=== PATIENT | male | born 1990 ===

== ENCOUNTER 2021-09-17 13:26 | Outpatient (CLI) | payer MEDICARE, MEDICAID, SELFPAY | END 2021-09-17 13:27 | disposition home or self-care (01) | LOC: ANHBWCAUD 13:28 | PROVIDERS: Visit Provider Family Medicine | DX: H91.93 Unspecified hearing loss, bilateral (principal) | CPT/HCPCS: 92557; 92567 ==

== ENCOUNTER 2024-09-28 09:04 | Outpatient (CLI) | payer MEDICARE, MEDICAID, SELFPAY ==
--- OUTSIDE RECORDS SUMMARY | 2024-09-28 09:46 | XMS_ITS | Encounter Summary ---
Author Organization [facility] Address [address] [place] [address] Phone Care Team Providers Care Pathology Collector Name Role Phone Gagan Mcginnis MD Primary Care Provider [phone] Gagan Mcginnis MD Unavailable [phone] Encounter Details Date Type Department Care Team (Late st Contact Info) Description 01/01/2022 Lab Requisition [facility] Laboratory Services 1 [place] [id number] Gagan Mcginnis MD [address] [place] [address] [address] Encounter for screening for COVID-19 Social History Tobacco Use Types Packs/Day Years Used Date Smoking Tobacco: Never Smokeless Tobacco: Never Alcohol Use Standard Drinks/Week Comments No 0 (1 standard drink = 0.6 oz pur e alcohol) Sex and Gender Information Value Date Recorded Sex Assigned at Not on file Legal Sex Male 11:01 PM CDT Gender Identity Not on file Sexual Orientation Not on file documented as of this encounter Plan of Treatment Not on file documented as of this encounter Procedures Procedure Name Priority Date/Time Associated Diagnosis Comments SARS-COV-2 BY MOLECULAR Routine 01/01/2022 7:14 AM CDT Encounter for screening for COVID-19 documented in this encounter Results * SARS-COV-2 BY MOLECULAR (01/01/2022 7:14 AM CDT) SARSCOV2 NOT DETECTED (Referen ce Range for this test is Not Detected ) [facility] THERMOFISHER FAST DX 01/02/2022 1:55 PM CDT [facility] Comment:This test was perfor med by a RT-PCR method. Other No Phlebotomy Charged / Unknown 01/01/2022 7:14 AM CDT 01/01/2022 12:40 PM CDT Narrative [facility] - 01/02/2022 1:55 PM CDT Authorized Fact Sheets about this test for providers and patients are available at: https://www.fda.gov/medical-devices/aclnrmdlg-nbkcdrtjbv-boqwrzz-devices/emergen -us e-authorizations us Gagan Mcginnis MD MICROBIOLOGY - GENERAL ORDERAB LES Final Result [facility] [address] [place] [address], documented in this encounter Visit Diagnoses Diagnosis Encounter for screening for COVID-19 documented in this encounter Additional Health Concerns Infection Onset Date Last Indicated Resolved Time COVID - 19 11/13/2021 06/11/2022 06/21/2022 12:1 6 AM LOADER SEMICONDUCTOR DIES COVID - 19 07/30/2022 10/15/2022 10/25/2022 12:1 6 AM CDT Respiratory Rule-Out 09/06/2024 09/06/2024 025 12:16 AM LOADER SEMICONDUCTOR DIES documented as of this encounter Care Teams Pathology Collector Relationship Specialty Start Date End Date Gagan Mcginnis MD [address] [place] [address] [address] [place] [address] PCP - General Family Medicine 06/12/21 Gagan Mcginnis MD [address] [place] [address] [place] [address] Family Medicine 06/12/21 documented as of this encounter
--- OUTSIDE RECORDS SUMMARY | 2024-09-28 09:46 | XMS_ITS | Encounter Summary ---
Author Organization [facility] Address [address] [place] [address] Phone Care Team Providers Care Care Manager Name Role Phone Gagan Mcginnis MD Primary Care Provider [phone] Gagan Mcginnis MD Unavailable [phone] Encounter Details Date Type Department Care Team (Late st Contact Info) Description 03/05/2022 Lab Requisition [facility] Laboratory Services 1 [place] [phone] Gagan Mcginnis MD [address] [place] [address] [address] Encounter for screening for COVID-19 Social History [...] Associated Diagnosis Comments SARS-COV-2 BY MOLECULAR Routine 03/05/2022 7:03 AM CDT documented in this encounter Results * SARS-COV-2 BY MOLECULAR (03/05/2022 7:03 AM CDT) SARSCOV2 NOT DETECTED (Referen ce Range for this test is Not Detected ) [facility] THERMOFISHER FAST DX 03/06/2022 1:01 PM CDT [facility] Comment:This test was perfor med by a RT-PCR method. Other Non-Phlebotomy Collection / Unknown 03/05/2022 7:03 AM CDT 03/05/2022 1:30 PM CDT Narrative [facility] - 03/06/2022 1:01 PM CDT Authorized Fact Sheets about this test for providers and patients are available at: https://www.fda.gov/medical-devices/ijvxatsqm-nfybhhfimz-pjvbxzt-devices/emergen -us e-authorizations us Gagan Mcginnis MD MICROBIOLOGY - GENERAL ORDERAB LES Final Result [facility] [address] [place] [address], documented in this encounter Visit Diagnoses Diagnosis Encounter for screening for COVID-19 documented in this encounter Additional Health Concerns Infection Onset Date Last Indicated Resolved Time COVID - 19 11/13/2021 06/11/2022 06/21/2022 12:1 6 AM MEDICAL ADVISOR COVID - 19 07/30/2022 10/15/2022 10/25/2022 12:1 6 AM CDT Respiratory Rule-Out 09/06/2024 09/06/2024 025 12:16 AM MEDICAL ADVISOR documented as of this encounter Care Teams Care Manager Relationship Specialty Start Date End Date Gagan Mcginnis MD [address] [place] [address] [place] [address] PCP - General Family Medicine 06/12/21 Gagan Mcginnis MD [address] [place] [address] [place] [address] Family Medicine 06/12/21 documented as of this encounter
--- OUTSIDE RECORDS SUMMARY | 2024-09-28 09:46 | XMS_ITS | Encounter Summary ---
Author Organization [facility] Address [address] [place] [address] Phone Care Team Providers Care Rivet Flunky Name Role Phone Gagan Mcginnis MD Primary Care Provider [phone] Gagan Mcginnis MD Unavailable Encounter Details Date Type Department Care Team (Late st Contact Info) Description 04/09/2022 Lab Requisition [facility] Laboratory Services 1 [place] [phone] Gagan Mcginnis MD [address] [place] [address] [address] Encounter for screening for COVID-19 Social History [...] Associated Diagnosis Comments SARS-COV-2 BY MOLECULAR Routine 04/09/2022 7:22 AM CDT Encounter for screening for COVID-19 documented in this encounter Results * SARS-COV-2 BY MOLECULAR (04/09/2022 7:22 AM CDT) SARSCOV2 NOT DETECTED (Referen ce Range for this test is Not Detected ) [facility] THERMOFISHER FAST DX 04/10/2022 8:21 AM CDT [facility] Comment:This test was perfor med by a RT-PCR method. Other COVID 19 Home Health/ Alf Facility Collection / Unknown 04/09/2022 7:22 AM CDT 04/09/2022 1:21 PM CDT Narrative [facility] - 04/10/2022 8:21 AM CDT Authorized Fact Sheets about this test for providers and patients are available at: https://www.fda.gov/medical-devices/klmihkhrp-qyhgdzpuzl-icmsalj-devices/emergen -us e-authorizations us aGgan Mcginnis MD MICROBIOLOGY - GENERAL ORDERAB LES Final Result [facility] [address] [place] [address], documented in this encounter Visit Diagnoses Diagnosis Encounter for screening for COVID-19 documented in this encounter Additional Health Concerns Infection Onset Date Last Indicated Resolved Time COVID - 19 11/13/2021 06/11/2022 06/21/2022 12:1 6 AM CORN HUSKER MACHINE OPERATOR COVID - 19 07/30/2022 10/15/2022 10/25/2022 12:1 6 AM CDT Respiratory Rule-Out 09/06/2024 09/06/2024 025 12:16 AM CORN HUSKER MACHINE OPERATOR documented as of this encounter Care Teams Rivet Flunky Relationship Specialty Start Date End Date Gagan Mcginnis MD [address] [facility] [address] [place] [address] PCP - General Family Medicine 06/12/21 Gagan Mcginnis MD [address] [facility] [address] [place] [address] Family Medicine 06/12/21 documented as of this encounter
--- OUTSIDE RECORDS SUMMARY | 2024-09-28 09:46 | XMS_ITS | Encounter Summary ---
Author Organization [facility] Address [address] [place] [address] Phone Care Team Providers Care Household Coordinator Name Role Phone Gagan Mcginnis MD Primary Care Provider [phone] Gagan Mcginnis MD Unavailable [phone] Encounter Details Date Type Department Care Team (Late st Contact Info) Description 06/19/2021 Lab Requisition [facility] Laboratory Services 1 [place] [phone] Gagan Mcginnis MD [address] [place] [address] [address] Encounter for screening for COVID-19 Social History [...] on file Sexual Orientation Not on file COVID-19 Exposure Response Date Recorded In the last month, have you been in contact with someone who was confirmed or suspected to have Coronavirus / COVID-19? No / Unsure 05/27/2021 11:57 AM CDT documented as of this encounter Plan of Treatment Not on file documented as of this encounter Procedures Procedure Name Priority Date/Time Associated Diagnosis Comments SARS-COV-2 BY MOLECULAR Routine 06/19/2021 7:33 AM AD TAKER Encounter for screening for COVID-19 documented in this encounter Results * SARS-COV-2 BY MOLECULAR (06/19/2021 7:33 AM AD TAKER) SARSCOV2 NOT DETECTED (Referen ce Range for this test is Not Detected ) [facility] THERMOFISHER FAST DX 06/20/2021 8:54 AM AD TAKER [facility] Comment:This test was perfor med by a RT-PCR method. Other Non-Phlebotomy Collection / Unknown 06/19/2021 7:33 AM AD TAKER 06/19/2021 10:35 AM AD TAKER Narrative [facility] - 06/20/2021 8:54 AM AD TAKER Authorized Fact Sheets about this test for providers and patients are available at: https://www.fda.gov/medical-devices/zblefgyql-uhhiunzplf-amajxca-devices/emergen -us e-authorizations us Gagan Mcginnis MD MICROBIOLOGY - GENERAL ORDERAB LES Final Result [facility] [address] [place] [address], documented in this encounter Visit Diagnoses Diagnosis Encounter for screening for COVID-19 documented in this encounter Additional Health Concerns Infection Onset Date Last Indicated Resolved Time COVID - 19 04/24/2021 08/14/2021 08/16/2021 6:12 AM AD TAKER COVID - 19 06/12/2021 07/10/2021 07/16/2021 12:1 8 AM AD TAKER COVID - 19 07/17/2021 07/31/2021 08/06/2021 12:1 6 AM AD TAKER COVID - 19 Confirmed 08/14/2021 08/14/2021 022 12:17 AM AD TAKER COVID - 19 09/11/2021 09/11/2021 10/01/2021 12:1 6 AM AD TAKER COVID - 19 11/13/2021 06/11/2022 06/21/2022 12:1 6 AM AD TAKER COVID - 19 07/30/2022 10/15/2022 10/25/2022 12:1 6 AM CDT Respiratory Rule-Out 09/06/2024 09/06/2024 025 12:16 AM AD TAKER documented as of this encounter Care Teams Household Coordinator Relationship Specialty Start Date End Date Gagan Mcginnis MD [address] [facility] [address] [place] [address] PCP - General Family Medicine 06/12/21 Gagan Mcginnis MD [address] [facility] [address] [place] [address] Family Medicine 06/12/21 documented as of this encounter
--- OUTSIDE RECORDS SUMMARY | 2024-09-28 09:46 | XMS_ITS | Encounter Summary ---
Author Organization [facility] Address [address] [place] [address] Phone Care Team Providers Care Access Services Librarian Name Role Phone Gagan Mcginnis MD Primary Care Provider [phone] Gagan Mcginnis MD Unavailable [phone] Encounter Details Date Type Department Care Team (Late st Contact Info) Description 06/26/2021 Lab Requisition [facility] Laboratory Services 1 [place] [phone] Gagan Mcginnis MD [address] [place] [address] [address] Encounter for screening for COVID-19 Social History Tobacco Use Types Packs/Day Years Used Date Smoking Tobacco: Never Assessed Sex and Gender Information Value Date Recorded [...] Associated Diagnosis Comments SARS-COV-2 BY MOLECULAR Routine 06/26/2021 7:23 AM INSPECTOR INTEGRATED CIRCUITS Encounter for screening for COVID-19 documented in this encounter Results * SARS-COV-2 BY MOLECULAR (06/26/2021 7:23 AM INSPECTOR INTEGRATED CIRCUITS) SARSCOV2 NOT DETECTED (Referen ce Range for this test is Not Detected ) [facility] THERMOFISHER FAST DX 06/27/2021 9:23 AM INSPECTOR INTEGRATED CIRCUITS [facility] Comment:This test was perfor med by a RT-PCR method. Other No Phlebotomy Charged / Unknown 06/26/2021 7:23 AM INSPECTOR INTEGRATED CIRCUITS 06/26/2021 10:26 AM INSPECTOR INTEGRATED CIRCUITS Narrative [facility] - 06/27/2021 9:23 AM INSPECTOR INTEGRATED CIRCUITS Authorized Fact Sheets about this test for providers and patients are available at: https://www.fda.gov/medical-devices/mllrxotbp-ukesedzvws-xmnonam-devices/emergen cy-us e-authorizations us Gagan Mcginnis MD MICROBIOLOGY - GENERAL ORDERAB LES Final Result [facility] [address] [place] [address], documented in this encounter Visit Diagnoses Diagnosis Encounter for screening for COVID-19 documented in this encounter Additional Health Concerns Infection Onset Date Last Indicated Resolved Time COVID - 19 04/24/2021 08/14/2021 08/16/2021 6:12 AM INSPECTOR INTEGRATED CIRCUITS COVID - 19 06/12/2021 07/10/2021 07/16/2021 12:1 8 AM INSPECTOR INTEGRATED CIRCUITS COVID - 19 07/17/2021 07/31/2021 08/06/2021 12:1 6 AM INSPECTOR INTEGRATED CIRCUITS COVID - 19 Confirmed 08/14/2021 08/14/2021 022 12:17 AM INSPECTOR INTEGRATED CIRCUITS COVID - 19 09/11/2021 09/11/2021 10/01/2021 12:1 6 AM INSPECTOR INTEGRATED CIRCUITS COVID - 19 11/13/2021 06/11/2022 06/21/2022 12:1 6 AM INSPECTOR INTEGRATED CIRCUITS COVID - 19 07/30/2022 10/15/2022 10/25/2022 12:1 6 AM CDT Respiratory Rule-Out 09/06/2024 09/06/2024 025 12:16 AM INSPECTOR INTEGRATED CIRCUITS documented as of this encounter Care Teams Access Services Librarian Relationship Specialty Start Date End Date Gagan Mcginnis MD [address] [place] [address] [address] [place] [address] PCP - General Family Medicine 06/12/21 Gagan Mcginnis MD [address] [facility] [place] [address] Family Medicine 06/12/21 documented as of this encounter
--- OUTSIDE RECORDS SUMMARY | 2024-09-28 09:46 | XMS_ITS | Encounter Summary ---
Author Organization [facility] Address [address] [place] [address] Phone Care Team Providers Care Corporate Legal Assistant Name Role Phone Gagan Mcginnis MD Primary Care Provider [phone] Gagan Mcginnis MD Unavailable [phone] Encounter Details Date Type Department Care Team (Late st Contact Info) Description 03/19/2022 Lab Requisition [facility] Laboratory Services 1 [place] [phone] Gagan Mcginnis MD [address] [place] [address] [address] Encounter for screening for COVID-19 Social History [...] Associated Diagnosis Comments SARS-COV-2 BY MOLECULAR Routine 03/19/2022 7:20 AM CDT documented in this encounter Results * SARS-COV-2 BY MOLECULAR (03/19/2022 7:20 AM CDT) SARSCOV2 NOT DETECTED (Referen ce Range for this test is Not Detected ) [facility] THERMOFISHER FAST DX 03/20/2022 5:38 PM CDT [facility] Comment:This test was perfor med by a RT-PCR method. Other Non-Phlebotomy Collection / Unknown 03/19/2022 7:20 AM CDT 03/19/2022 1:17 PM CDT Narrative [facility] - 03/20/2022 5:38 PM CDT Authorized Fact Sheets about this test for providers and patients are available at: https://www.fda.gov/medical-devices/ilbfrmzua-gqvmedyazc-mckseha-devices/emergen -us e-authorizations us Gagan Mcginnis MD MICROBIOLOGY - GENERAL ORDERAB LES Final Result [facility] [address] [place] [address], documented in this encounter Visit Diagnoses Diagnosis Encounter for screening for COVID-19 documented in this encounter Additional Health Concerns Infection Onset Date Last Indicated Resolved Time COVID - 19 11/13/2021 06/11/2022 06/21/2022 12:1 6 AM FIXER SUPERVISOR COVID - 19 07/30/2022 10/15/2022 10/25/2022 12:1 6 AM CDT Respiratory Rule-Out 09/06/2024 09/06/2024 025 12:16 AM FIXER SUPERVISOR documented as of this encounter Care Teams Corporate Legal Assistant Relationship Specialty Start Date End Date Gagan Mcginnis MD [address] [place] [address] [place] [address] PCP - General Family Medicine 06/12/21 Gagan Mcginnis MD [address] [place] [address] [place] [address] Family Medicine 06/12/21 documented as of this encounter
--- OUTSIDE RECORDS SUMMARY | 2024-09-28 09:46 | XMS_ITS | Encounter Summary ---
Author Organization [facility] Address [address] [place] [address] Phone Care Team Providers Care Heavy Rail Train Operator Name Role Phone Gagan Mcginnis MD Primary Care Provider [phone] Gagan Mcginnis MD Primary Care Provider [phone] Gagan Mcginnis MD Unavailable Encounter Details Date Type Department Care Team (Late st Contact Info) Description 05/29/2021 Lab Requisition [facility] Laboratory Services 1 [place] [address] Gagan Mcginnis MD [address] [place] [address] [facility] [address] [place] [address] Encounter for screening for other bacterial diseases Social History Tobacco Use Types Packs/Day Years [...] Associated Diagnosis Comments SARS-COV-2 BY MOLECULAR Routine 05/29/2021 7:20 AM CDT Encounter for screening for other bacterial diseases documented in this encounter Results * SARS-COV-2 BY MOLECULAR (05/29/2021 7:20 AM CDT) SARSCOV2 NOT DETECTED (Referen ce Range for this test is Not Detected ) [facility] THERMOFISHER FAST DX 05/30/2021 7:12 AM CDT [facility] Comment:This test was perfor med by a RT-PCR method. Other COVID 19 Collection / Unknown 05/29/2021 7:20 AM CDT 05/29/2021 11:48 AM CDT Narrative [facility] - 05/30/2021 7:12 AM CDT Authorized Fact Sheets about this test for providers and patients are available at: https://www.fda.gov/medical-devices/msgetyhma-egvshwkrvo-kzilede-devices/emergen -us e-authorizations us Gagan Mcginnis MD MICROBIOLOGY - GENERAL ORDERAB LES Final Result Performing Organization Address City/State/[facility] Co de Phone Number [facility] [address] [place] [address], documented in this encounter Visit Diagnoses Diagnosis Encounter for screening for other bacterial diseases documented in this encounter Additional Health Concerns Infection Onset Date Last Indicated Resolved Time COVID - 19 04/24/2021 08/14/2021 08/16/2021 6:12 AM AUTOMOBILE LIGHTS ASSEMBLER COVID - 19 06/12/2021 07/10/2021 07/16/2021 12:1 8 AM AUTOMOBILE LIGHTS ASSEMBLER COVID - 19 07/17/2021 07/31/2021 08/06/2021 12:1 6 AM AUTOMOBILE LIGHTS ASSEMBLER COVID - 19 Confirmed 08/14/2021 08/14/2021 022 12:17 AM AUTOMOBILE LIGHTS ASSEMBLER COVID - 19 09/11/2021 09/11/2021 10/01/2021 12:1 6 AM AUTOMOBILE LIGHTS ASSEMBLER COVID - 19 11/13/2021 06/11/2022 06/21/2022 12:1 6 AM AUTOMOBILE LIGHTS ASSEMBLER COVID - 19 07/30/2022 10/15/2022 10/25/2022 12:1 6 AM CDT Respiratory Rule-Out 09/06/2024 09/06/2024 02/25/2 025 12:16 AM AUTOMOBILE LIGHTS ASSEMBLER documented as of this encounter Care Teams Heavy Rail Train Operator Relationship Specialty Start Date End Date Gagan Mcginnis MD [address] [place] [address] PCP - General Family Medicine 08/21/20 06/11/21 Gagan Mcginnis MD [address] [place] [address] PCP - General Family Medicine 06/12/21 Gagan Mcginnis MD [address] [place] [address] Family Medicine 06/12/21 documented as of this encounter
--- OUTSIDE RECORDS SUMMARY | 2024-09-28 09:46 | XMS_ITS | Encounter Summary ---
Author Organization [facility] Address [address] [place] [address] Phone Care Team Providers Care [employer] Name Role Phone Gagan Mcginnis MD Primary Care Provider [phone] Gagan Mcginnis MD Unavailable [phone] Reason for Visit * Reason Comments Seizure Encounter Details Date Type Department Care Team (Late st Contact Info) Description 04/14/2022 Nursing Facility [facility] [address] [place] [address] Uri Sapp MD [address] [place] [phone] Social History Tobacco Use Types Packs/Day Years [...] on file documented as of this encounter Visit Diagnoses Not on filedocumented in this encounter Additional Health Concerns Infection Onset Date Last Indicated Resolved Time COVID - 19 11/13/2021 06/11/2022 06/21/2022 12:1 6 AM GLOBAL CATEGORY MANAGER COVID - 19 07/30/2022 10/15/2022 10/25/2022 12:1 6 AM CDT Respiratory Rule-Out 09/06/2024 09/06/2024 025 12:16 AM GLOBAL CATEGORY MANAGER documented as of this encounter Care Teams [employer] Relationship Specialty Start Date End Date Gagan Mcginnis MD [address] [facility] [address] [place] [address] PCP - General Family Medicine 06/12/21 Gagan Mcginnis MD [address] [facility] [address] [place] [address] Family Medicine 06/12/21 documented as of this encounter
--- OUTSIDE RECORDS SUMMARY | 2024-09-28 09:46 | XMS_ITS | Encounter Summary ---
Author Organization [facility] Address [address] [place] [address] Phone Care Team Providers Care Systems Manager Name Role Phone Gagan Mcginnis MD Primary Care Provider [phone] Gagan Mcginnis MD Unavailable [phone] Encounter Details Date Type Department Care Team (Late st Contact Info) Description 04/02/2022 Lab Requisition [facility] Laboratory Services 1 [place] [phone] Gagan Mcginnis MD [address] [place] [address] [address] Encounter for screening for COVID-19 Social History [...] Associated Diagnosis Comments SARS-COV-2 BY MOLECULAR Routine 04/02/2022 7:24 AM CDT Encounter for screening for COVID-19 documented in this encounter Results * SARS-COV-2 BY MOLECULAR (04/02/2022 7:24 AM CDT) SARSCOV2 NOT DETECTED (Referen ce Range for this test is Not Detected ) [facility] THERMOFISHER FAST DX 04/03/2022 6:15 AM CDT [facility] Comment:This test was perfor med by a RT-PCR method. Other Non-Phlebotomy Collection / Unknown 04/02/2022 7:24 AM CDT 04/02/2022 12:48 PM CDT Narrative [facility] - 04/03/2022 6:15 AM CDT Authorized Fact Sheets about this test for providers and patients are available at: https://www.fda.gov/medical-devices/qlosunpcq-qyqglddlav-ncvasem-devices/emergen -us e-authorizations us Gagan Mcginnis MD MICROBIOLOGY - GENERAL ORDERAB LES Final Result [facility] [address] [place] [address], documented in this encounter Visit Diagnoses Diagnosis Encounter for screening for COVID-19 documented in this encounter Additional Health Concerns Infection Onset Date Last Indicated Resolved Time COVID - 19 11/13/2021 06/11/2022 06/21/2022 12:1 6 AM COOKING TEACHER COVID - 19 07/30/2022 10/15/2022 10/25/2022 12:1 6 AM CDT Respiratory Rule-Out 09/06/2024 09/06/2024 025 12:16 AM COOKING TEACHER documented as of this encounter Care Teams Systems Manager Relationship Specialty Start Date End Date Gagan Mcginnis MD [address] [place] [address] [address] [place] [address] PCP - General Family Medicine 06/12/21 Gagan Mcginnis MD [address] [facility] [address] [place] [address] Family Medicine 06/12/21 documented as of this encounter
--- OUTSIDE RECORDS SUMMARY | 2024-09-28 09:46 | XMS_ITS | Encounter Summary ---
Author Organization [facility] Address [address] [place] [address] Phone Care Team Providers Care Vice President Of Academic Affairs Name Role Phone Gagan Mcginnis MD Primary Care Provider [phone] Gagan Mcginnis MD Unavailable [phone] Encounter Details Date Type Department Care Team (Late st Contact Info) Description 01/08/2022 Lab Requisition [facility] Laboratory Services 1 [place] [phone] Gagan Mcginnis MD [address] [place] [address] [address] Encounter for screening for COVID-19 Social History [...] Associated Diagnosis Comments SARS-COV-2 BY MOLECULAR Routine 01/08/2022 7:28 AM CDT Encounter for screening for COVID-19 documented in this encounter Results * SARS-COV-2 BY MOLECULAR (01/08/2022 7:28 AM CDT) SARSCOV2 NOT DETECTED (Referen ce Range for this test is Not Detected ) [facility] THERMOFISHER FAST DX 01/09/2022 9:54 AM CDT [facility] Comment:This test was perfor med by a RT-PCR method. Other Non-Phlebotomy Collection / Unknown 01/08/2022 7:28 AM CDT 01/08/2022 11:27 AM CDT Narrative [facility] - 01/09/2022 9:54 AM CDT Authorized Fact Sheets about this test for providers and patients are available at: https://www.fda.gov/medical-devices/auhkzxiuu-eyxgkevsij-qwdcjed-devices/emergen -us e-authorizations us Gagan Mcginnis MD MICROBIOLOGY - GENERAL ORDERAB LES Final Result [facility] [address] [place] [address], documented in this encounter Visit Diagnoses Diagnosis Encounter for screening for COVID-19 documented in this encounter Additional Health Concerns Infection Onset Date Last Indicated Resolved Time COVID - 19 11/13/2021 06/11/2022 06/21/2022 12:1 6 AM BUSINESS OFFICE TECHNOLOGY INSTRUCTOR COVID - 19 07/30/2022 10/15/2022 10/25/2022 12:1 6 AM CDT Respiratory Rule-Out 09/06/2024 09/06/2024 025 12:16 AM BUSINESS OFFICE TECHNOLOGY INSTRUCTOR documented as of this encounter Care Teams Vice President Of Academic Affairs Relationship Specialty Start Date End Date Gagan Mcginnis MD [address] [place] [address] [address] [place] [address] PCP - General Family Medicine 06/12/21 Gagan Mcginnis MD [address] [facility] [address] [place] [address] Family Medicine 06/12/21 documented as of this encounter
--- OUTSIDE RECORDS SUMMARY | 2024-09-28 09:46 | XMS_ITS | Encounter Summary ---
Author Organization [facility] Address [address] [place] [address] Phone Care Team Providers Care Police Service Technician Name Role Phone Gagan Mcginnis MD Primary Care Provider [phone] Gagan Mcginnis MD Unavailable [phone] Encounter Details Date Type Department Care Team (Late st Contact Info) Description 04/23/2022 Lab Requisition [facility] Laboratory Services 1 [place] [phone] Gagan Mcginnis MD [address] [place] [address] [address] Encounter for screening for COVID-19 Social History [...] Associated Diagnosis Comments SARS-COV-2 BY MOLECULAR Routine 04/23/2022 7:16 AM CDT Encounter for screening for COVID-19 documented in this encounter Results * SARS-COV-2 BY MOLECULAR (04/23/2022 7:16 AM CDT) SARSCOV2 NOT DETECTED (Referen ce Range for this test is Not Detected ) [facility] THERMOFISHER FAST DX 04/24/2022 10:24 AM CDT [facility] Comment:This test was perfor med by a RT-PCR method. Other Non-Phlebotomy Collection / Unknown 04/23/2022 7:16 AM CDT 04/23/2022 11:33 AM CDT Narrative [facility] - 04/24/2022 10:24 AM CDT Authorized Fact Sheets about this test for providers and patients are available at: https://www.fda.gov/medical-devices/zboppvcfa-ybhvmndviq-mihsdkc-devices/emergen -us e-authorizations us Gagan Mcginnis MD MICROBIOLOGY - GENERAL ORDERAB LES Final Result [facility] [address] [place] [address], documented in this encounter Visit Diagnoses Diagnosis Encounter for screening for COVID-19 documented in this encounter Additional Health Concerns Infection Onset Date Last Indicated Resolved Time COVID - 19 11/13/2021 06/11/2022 06/21/2022 12:1 6 AM METAL FILER COVID - 19 07/30/2022 10/15/2022 10/25/2022 12:1 6 AM CDT Respiratory Rule-Out 09/06/2024 09/06/2024 025 12:16 AM METAL FILER documented as of this encounter Care Teams Police Service Technician Relationship Specialty Start Date End Date Gagan Mcginnis MD [address] [place] [address] [address] [place] [address] PCP - General Family Medicine 06/12/21 Gagan Mcginnis MD 4 [facility] [address] [place] [address] Family Medicine 06/12/21 documented as of this encounter
--- OUTSIDE RECORDS SUMMARY | 2024-09-28 09:46 | XMS_ITS | Encounter Summary ---
Author Organization [facility] Address [address] [place] [address] Phone Care Team Providers Care Animal Sitter Name Role Phone Gagan Mcginnis MD Primary Care Provider [phone] Gagan Mcginnis MD Unavailable [phone] Encounter Details Date Type Department Care Team (Late st Contact Info) Description 04/30/2022 Lab Requisition [facility] Laboratory Services 1 [place] [phone] Gagan Mcginnis MD [address] [place] [address] [address] Encounter for screening for COVID-19 Social History [...] Associated Diagnosis Comments SARS-COV-2 BY MOLECULAR Routine 04/30/2022 7:26 AM CDT Encounter for screening for COVID-19 documented in this encounter Results * SARS-COV-2 BY MOLECULAR (04/30/2022 7:26 AM CDT) SARSCOV2 NOT DETECTED (Referen ce Range for this test is Not Detected ) [facility] THERMOFISHER FAST DX 05/01/2022 5:34 PM CDT [facility] Comment:This test was perfor med by a RT-PCR method. Other Non-Phlebotomy Collection / Unknown 04/30/2022 7:26 AM CDT 04/30/2022 11:59 AM CDT Narrative [facility] - 05/01/2022 5:34 PM CDT Authorized Fact Sheets about this test for providers and patients are available at: https://www.fda.gov/medical-devices/nzwbyhnbk-cgvlhqsrtq-utfxuxl-devices/emergen -us e-authorizations us Gagan Mcginnis MD MICROBIOLOGY - GENERAL ORDERAB LES Final Result [facility] [address] [place] [address], documented in this encounter Visit Diagnoses Diagnosis Encounter for screening for COVID-19 documented in this encounter Additional Health Concerns Infection Onset Date Last Indicated Resolved Time COVID - 19 11/13/2021 06/11/2022 06/21/2022 12:1 6 AM CHAIN FORMING MACHINE OPERATOR COVID - 19 07/30/2022 10/15/2022 10/25/2022 12:1 6 AM CDT Respiratory Rule-Out 09/06/2024 09/06/2024 025 12:16 AM CHAIN FORMING MACHINE OPERATOR documented as of this encounter Care Teams Animal Sitter Relationship Specialty Start Date End Date Gagan Mcginnis MD [address] [place] [address] [address] [place] [address] PCP - General Family Medicine 06/12/21 Gagan Mcginnis MD [address] [facility] [address] [place] [address] Family Medicine 06/12/21 documented as of this encounter
--- OUTSIDE RECORDS SUMMARY | 2024-09-28 09:46 | XMS_ITS | Encounter Summary ---
Author Organization [facility] Address [address] [place] [address] Phone Care Team Providers Care Assistant Scientist Name Role Phone Gagan Mcginnis MD Primary Care Provider [phone] Gagan Mcginnis MD Unavailable [phone] Encounter Details Date Type Department Care Team (Late st Contact Info) Description 07/03/2021 Lab Requisition [facility] Laboratory Services 1 [place] [phone] Gagan Mcginnis MD [address] [place] [address] [address] Social History Tobacco Use Types Packs/Day Years [...] Associated Diagnosis Comments SARS-COV-2 BY MOLECULAR Routine 07/03/2021 7:17 AM STAFF RADIOGRAPHER documented in this encounter Results * SARS-COV-2 BY MOLECULAR (07/03/2021 7:17 AM STAFF RADIOGRAPHER) SARSCOV2 NOT DETECTED (Referen ce Range for this test is Not Detected ) [facility] THERMOFISHER FAST DX 07/04/2021 7:45 PM STAFF RADIOGRAPHER [facility] Comment:This test was perfor med by a RT-PCR method. Other Non-Phlebotomy Collection / Unknown 07/03/2021 7:17 AM STAFF RADIOGRAPHER 07/03/2021 11:29 AM STAFF RADIOGRAPHER Narrative [facility] - 07/04/2021 7:45 PM STAFF RADIOGRAPHER Authorized Fact Sheets about this test for providers and patients are available at: https://www.fda.gov/medical-devices/ukvbnlczt-xvdwgidmbn-aomrasf-devices/emergen cy-us e-authorizations us Gagan Mcginnis MD MICROBIOLOGY - GENERAL ORDERAB LES Final Result [facility] [address] [place] [address], [place] documented in this encounter Visit Diagnoses Not on filedocumented in this encounter Additional Health Concerns Infection Onset Date Last Indicated Resolved Time COVID - 19 04/24/2021 08/14/2021 08/16/2021 6:12 AM STAFF RADIOGRAPHER COVID - 19 06/12/2021 07/10/2021 07/16/2021 12:1 8 AM STAFF RADIOGRAPHER COVID - 19 07/17/2021 07/31/2021 08/06/2021 12:1 6 AM STAFF RADIOGRAPHER COVID - 19 Confirmed 08/14/2021 08/14/2021 022 12:17 AM STAFF RADIOGRAPHER COVID - 19 09/11/2021 09/11/2021 10/01/2021 12:1 6 AM STAFF RADIOGRAPHER COVID - 19 11/13/2021 06/11/2022 06/21/2022 12:1 6 AM STAFF RADIOGRAPHER COVID - 19 07/30/2022 10/15/2022 10/25/2022 12:1 6 AM CDT Respiratory Rule-Out 09/06/2024 09/06/2024 025 12:16 AM STAFF RADIOGRAPHER documented as of this encounter Care Teams Assistant Scientist Relationship Specialty Start Date End Date Gagan Mcginnis MD [address] [place] [address] [address] [place] [address] PCP - General Family Medicine 06/12/21 Gagan Mcginnis MD [address] [place] [address] [place] [address] Family Medicine 06/12/21 documented as of this encounter
--- OUTSIDE RECORDS SUMMARY | 2024-09-28 09:46 | XMS_ITS | Encounter Summary ---
Author Organization [facility] Address [address] [place] [address] Phone Care Team Providers Care Livestock Farm Manager Name Role Phone Gagan Mcginnis MD Primary Care Provider [phone] Gagan Mcginnis MD Unavailable [phone] Encounter Details Date Type Department Care Team (Late st Contact Info) Description 03/12/2022 Lab Requisition [facility] Laboratory Services 1 [place] [phone] Gagan Mcginnis MD [address] [place] [address] [address] Encounter for screening for COVID-19 Social History [...] Associated Diagnosis Comments SARS-COV-2 BY MOLECULAR Routine 03/12/2022 7:18 AM CDT Encounter for screening for COVID-19 documented in this encounter Results * SARS-COV-2 BY MOLECULAR (03/12/2022 7:18 AM CDT) SARSCOV2 NOT DETECTED (Referen ce Range for this test is Not Detected ) [facility] THERMOFISHER FAST DX 03/13/2022 10:30 AM CDT [facility] Comment:This test was perfor med by a RT-PCR method. Other Non-Phlebotomy Collection / Unknown 03/12/2022 7:18 AM CDT 03/12/2022 12:24 PM CDT Narrative [facility] - 03/13/2022 10:30 AM CDT Authorized Fact Sheets about this test for providers and patients are available at: https://www.fda.gov/medical-devices/wfrxbkmlk-gsrvtrpidc-ixkugmc-devices/emergen -us e-authorizations us Gagan Mcginnis MD MICROBIOLOGY - GENERAL ORDERAB LES Final Result [facility] [address] [place] [address], documented in this encounter Visit Diagnoses Diagnosis Encounter for screening for COVID-19 documented in this encounter Additional Health Concerns Infection Onset Date Last Indicated Resolved Time COVID - 19 11/13/2021 06/11/2022 06/21/2022 12:1 6 AM SHOT DROPPER COVID - 19 07/30/2022 10/15/2022 10/25/2022 12:1 6 AM CDT Respiratory Rule-Out 09/06/2024 09/06/2024 025 12:16 AM SHOT DROPPER documented as of this encounter Care Teams Livestock Farm Manager Relationship Specialty Start Date End Date Gagan Mcginnis MD [address] [place] [address] [address] [place] [address] PCP - General Family Medicine 06/12/21 Gagan Mcginnis MD [address] [facility] [address] [place] [address] Family Medicine 06/12/21 documented as of this encounter
--- OUTSIDE RECORDS SUMMARY | 2024-09-28 09:46 | XMS_ITS | Encounter Summary ---
Author Organization [facility] Address [address] [place] [address] Phone Care Team Providers Care Contact Lens Blocker Name Role Phone Gagan Mcginnis MD Primary Care Provider [phone] Gagan Mcginnis MD Unavailable [phone] Encounter Details Date Type Department Care Team (Late st Contact Info) Description 02/26/2022 Lab Requisition [facility] Laboratory Services 1 [place] [phone] Gagan Mcginnis MD [address] [place] [address] [address] Encounter for screening for COVID-19 Social History [...] Associated Diagnosis Comments SARS-COV-2 BY MOLECULAR Routine 02/26/2022 7:37 AM CDT Encounter for screening for COVID-19 documented in this encounter Results * SARS-COV-2 BY MOLECULAR (02/26/2022 7:37 AM CDT) SARSCOV2 NOT DETECTED (Referen ce Range for this test is Not Detected ) [facility] THERMOFISHER FAST DX 02/27/2022 9:26 AM CDT [facility] Comment:This test was perfor med by a RT-PCR method. Other Non-Phlebotomy Collection / Unknown 02/26/2022 7:37 AM CDT 02/26/2022 2:25 PM CDT Narrative [facility] - 02/27/2022 9:26 AM CDT Authorized Fact Sheets about this test for providers and patients are available at: https://www.fda.gov/medical-devices/uzejcclii-zlgzvldepp-nvmyfct-devices/emergen -us e-authorizations us Gagan Mcginnis MD MICROBIOLOGY - GENERAL ORDERAB LES Final Result [facility] [address] [place] [address], documented in this encounter Visit Diagnoses Diagnosis Encounter for screening for COVID-19 documented in this encounter Additional Health Concerns Infection Onset Date Last Indicated Resolved Time COVID - 19 11/13/2021 06/11/2022 06/21/2022 12:1 6 AM DRILL PRESS TENDER COVID - 19 07/30/2022 10/15/2022 10/25/2022 12:1 6 AM CDT Respiratory Rule-Out 09/06/2024 09/06/2024 025 12:16 AM DRILL PRESS TENDER documented as of this encounter Care Teams Contact Lens Blocker Relationship Specialty Start Date End Date Gagan Mcginnis MD [address] [place] [address] [address] [place] [address] PCP - General Family Medicine 06/12/21 Gagan Mcginnis MD [address] [facility] [address] [place] [id number] Family Medicine 06/12/21 documented as of this encounter
--- OUTSIDE RECORDS SUMMARY | 2024-09-28 09:46 | XMS_ITS | Encounter Summary ---
Author Organization [facility] Address [address] [place] [address] Phone Care Team Providers Care Testing Director Name Role Phone Gagan Mcginnis MD Primary Care Provider [phone] Gagan Mcginnis MD Primary Care Provider [phone] Gagan Mcginnis MD Unavailable [phone] Encounter Details Date Type Department Care Team (Late st Contact Info) Description 06/05/2021 Lab Requisition [facility] Laboratory Services 1 [place] [address] Gagan Mcginnis MD [address] [place] [address] [address] [place] [address] Social History Tobacco Use Types Packs/Day Years [...] Associated Diagnosis Comments SARS-COV-2 BY MOLECULAR Routine 06/05/2021 7:16 AM CDT documented in this encounter Results * SARS-COV-2 BY MOLECULAR (06/05/2021 7:16 AM CDT) SARSCOV2 NOT DETECTED (Referen ce Range for this test is Not Detected ) [facility] THERMOFISHER FAST DX 06/05/2021 11:51 PM CDT [facility] Comment:This test was perfor med by a RT-PCR method. Other Non-Phlebotomy Collection / Unknown 06/05/2021 7:16 AM CDT 06/05/2021 10:56 AM CDT Narrative [facility] - 06/05/2021 11:51 PM CDT Authorized Fact Sheets about this test for providers and patients are available at: https://www.fda.gov/medical-devices/bjvrpowmw-vqpugqunak-icrpbyv-devices/emergen cy-us e-authorizations us Gagan Mcginnis MD MICROBIOLOGY - GENERAL ORDERAB LES Final Result [facility] [address] [place] [id number], documented in this encounter Visit Diagnoses Not on filedocumented in this encounter Additional Health Concerns Infection Onset Date Last Indicated Resolved Time COVID - 19 04/24/2021 08/14/2021 08/16/2021 6:12 AM TALENT ACQUISITION RELATIONSHIP MANAGER COVID - 19 06/12/2021 07/10/2021 07/16/2021 12:1 8 AM TALENT ACQUISITION RELATIONSHIP MANAGER COVID - 19 07/17/2021 07/31/2021 08/06/2021 12:1 6 AM TALENT ACQUISITION RELATIONSHIP MANAGER COVID - 19 Confirmed 08/14/2021 08/14/2021 022 12:17 AM TALENT ACQUISITION RELATIONSHIP MANAGER COVID - 19 09/11/2021 09/11/2021 10/01/2021 12:1 6 AM TALENT ACQUISITION RELATIONSHIP MANAGER COVID - 19 11/13/2021 06/11/2022 06/21/2022 12:1 6 AM TALENT ACQUISITION RELATIONSHIP MANAGER COVID - 19 07/30/2022 10/15/2022 10/25/2022 12:1 6 AM CDT Respiratory Rule-Out 09/06/2024 09/06/2024 025 12:16 AM TALENT ACQUISITION RELATIONSHIP MANAGER documented as of this encounter Care Teams Testing Director Relationship Specialty Start Date End Date Gagan Mcginnis MD [address] [facility] [address] PCP - General Family Medicine 08/21/20 06/11/21 Gagan Mcginnis MD [address] [facility] [address] PCP - General Family Medicine 06/12/21 Gagan Mcginnis MD [address] [facility] [address] Family Medicine 06/12/21 documented as of this encounter
--- OUTSIDE RECORDS SUMMARY | 2024-09-28 09:46 | XMS_ITS | Encounter Summary ---
Author Organization [facility] Address [address] [place] [address] Phone Care Team Providers Care Data Steward Name Role Phone Gagan Mcginnis MD Primary Care Provider [phone] Gagan Mcginnis MD Unavailable [phone] Encounter Details Date Type Department Care Team (Late st Contact Info) Description 06/12/2021 Lab Requisition [facility] Laboratory Services 1 [place] [phone] Gagan Mcginnis MD [address] [place] [address] [address] Social History Tobacco Use Types Packs/Day Years [...] Associated Diagnosis Comments SARS-COV-2 BY MOLECULAR Routine 06/12/2021 7:32 AM ELECTRICAL PROJECT MANAGER documented in this encounter Results * SARS-COV-2 BY MOLECULAR (06/12/2021 7:32 AM ELECTRICAL PROJECT MANAGER) SARSCOV2 NOT DETECTED (Referen ce Range for this test is Not Detected ) [facility] THERMOFISHER FAST DX 06/13/2021 10:05 AM ELECTRICAL PROJECT MANAGER [facility] Comment:This test was perfor med by a RT-PCR method. Other Non-Phlebotomy Collection / Unknown 06/12/2021 7:32 AM ELECTRICAL PROJECT MANAGER 06/12/2021 10:17 AM ELECTRICAL PROJECT MANAGER Narrative [facility] - 06/13/2021 10:05 AM ELECTRICAL PROJECT MANAGER Authorized Fact Sheets about this test for providers and patients are available at: https://www.fda.gov/medical-devices/fwusbxezd-neeaabegsk-gdehdpl-devices/emergen -us e-authorizations us Gagan Mcginnis MD MICROBIOLOGY - GENERAL ORDERAB LES Final Result [facility] [address] [place] [address], documented in this encounter Visit Diagnoses Not on filedocumented in this encounter Additional Health Concerns Infection Onset Date Last Indicated Resolved Time COVID - 19 04/24/2021 08/14/2021 08/16/2021 6:12 AM ELECTRICAL PROJECT MANAGER COVID - 19 06/12/2021 07/10/2021 07/16/2021 12:1 8 AM ELECTRICAL PROJECT MANAGER COVID - 19 07/17/2021 07/31/2021 08/06/2021 12:1 6 AM ELECTRICAL PROJECT MANAGER COVID - 19 Confirmed 08/14/2021 08/14/2021 022 12:17 AM ELECTRICAL PROJECT MANAGER COVID - 19 09/11/2021 09/11/2021 10/01/2021 12:1 6 AM ELECTRICAL PROJECT MANAGER COVID - 19 11/13/2021 06/11/2022 06/21/2022 12:1 6 AM ELECTRICAL PROJECT MANAGER COVID - 19 07/30/2022 10/15/2022 10/25/2022 12:1 6 AM CDT Respiratory Rule-Out 09/06/2024 09/06/2024 025 12:16 AM ELECTRICAL PROJECT MANAGER documented as of this encounter Care Teams Data Steward Relationship Specialty Start Date End Date Gagan Mcginnis MD [address] [place] [address] [address] [place] [address] PCP - General Family Medicine 06/12/21 Gagan Mcginnis MD [address] [facility] [address] [place] [address] Family Medicine 06/12/21 documented as of this encounter
--- OUTSIDE RECORDS SUMMARY | 2024-09-28 09:46 | XMS_ITS | Encounter Summary ---
Author Organization [facility] Address [address] [place] [address] Phone Care Team Providers Care Auto Service Dispatcher Name Role Phone Gagan Mcginnis MD Primary Care Provider [phone] Gagan Mcginnis MD Unavailable [phone] Encounter Details Date Type Department Care Team (Late st Contact Info) Description 04/16/2022 Lab Requisition [facility] Laboratory Services 1 [place] [phone] Gagan Mcginnis MD [address] [place] [address] [address] Encounter for screening for COVID-19 Social History [...] Associated Diagnosis Comments SARS-COV-2 BY MOLECULAR Routine 04/16/2022 7:24 AM CDT documented in this encounter Results * SARS-COV-2 BY MOLECULAR (04/16/2022 7:24 AM CDT) SARSCOV2 NOT DETECTED (Referen ce Range for this test is Not Detected ) [facility] THERMOFISHER FAST DX 04/16/2022 10:11 PM CDT [facility] Comment:This test was perfor med by a RT-PCR method. Other Non-Phlebotomy Collection / Unknown 04/16/2022 7:24 AM CDT 04/16/2022 9:36 AM CDT [facility]arrative [facility] - 04/16/2022 10:11 PM CDT Authorized Fact Sheets about this test for providers and patients are available at: https://www.fda.gov/medical-devices/upybhaqyn-mbxzvbvjsh-ygautbu-devices/emergen -us e-authorizations us Gagan Mcginnis MD MICROBIOLOGY - GENERAL ORDERAB LES Final Result [facility] [address] [place] [address], documented in this encounter Visit Diagnoses Diagnosis Encounter for screening for COVID-19 documented in this encounter Additional Health Concerns Infection Onset Date Last Indicated Resolved Time COVID - 19 11/13/2021 06/11/2022 06/21/2022 12:1 6 AM DIVE MASTER COVID - 19 07/30/2022 10/15/2022 10/25/2022 12:1 6 AM CDT Respiratory Rule-Out 09/06/2024 09/06/2024 025 12:16 AM DIVE MASTER documented as of this encounter Care Teams Auto Service Dispatcher Relationship Specialty Start Date End Date Gagan Mcginnis MD [address] [place] [address] [place] [address] PCP - General Family Medicine 06/12/21 Gagan Mcginnis MD [address] [place] [address] [place] [address] Family Medicine 06/12/21 documented as of this encounter
--- OUTSIDE RECORDS SUMMARY | 2024-09-28 09:46 | XMS_ITS | Encounter Summary ---
Author Organization [facility] Address [address] [place] [address] Phone Care Team Providers Care News Producer Name Role Phone Gagan Mcginnis MD Primary Care Provider [phone] Gagan Mcginnis MD Unavailable [phone] Encounter Details Date Type Department Care Team (Late st Contact Info) Description 03/26/2022 Lab Requisition [facility] Laboratory Services 1 [place] [id number] Gagan Mcginnis MD [address] [place] [address] [address] Encounter for screening for COVID-19 Social History [...] Associated Diagnosis Comments SARS-COV-2 BY MOLECULAR Routine 03/26/2022 6:52 AM CDT Encounter for screening for COVID-19 documented in this encounter Results * SARS-COV-2 BY MOLECULAR (03/26/2022 6:52 AM CDT) SARSCOV2 NOT DETECTED (Referen ce Range for this test is Not Detected ) [facility] THERMOFISHER FAST DX 03/27/2022 8:46 AM CDT [facility] Comment:This test was perfor med by a RT-PCR method. Other Non-Phlebotomy Collection / Unknown 03/26/2022 6:52 AM CDT 03/26/2022 11:34 AM CDT Narrative [facility] - 03/27/2022 8:46 AM CDT Authorized Fact Sheets about this test for providers and patients are available at: https://www.fda.gov/medical-devices/hetpmkjut-abkqolhpur-fmkzqpo-devices/emergen -us e-authorizations us Gagan Mcginnis MD MICROBIOLOGY - GENERAL ORDERAB LES Final Result [facility] [address] [place] [address], documented in this encounter Visit Diagnoses Diagnosis Encounter for screening for COVID-19 documented in this encounter Additional Health Concerns Infection Onset Date Last Indicated Resolved Time COVID - 19 11/13/2021 06/11/2022 06/21/2022 12:1 6 AM HUMAN RESOURCES FILE CLERK COVID - 19 07/30/2022 10/15/2022 10/25/2022 12:1 6 AM CDT Respiratory Rule-Out 09/06/2024 09/06/2024 025 12:16 AM HUMAN RESOURCES FILE CLERK documented as of this encounter Care Teams News Producer Relationship Specialty Start Date End Date Gagan Mcginnis MD [address] [place] [address] [address] [place] [address] PCP - General Family Medicine 06/12/21 Gagan Mcginnis MD 4 [facility] [address] [place] [address] Family Medicine 06/12/21 documented as of this encounter
--- OUTSIDE RECORDS SUMMARY | 2024-09-28 09:47 | XMS_ITS | Encounter Summary ---
Author Organization [facility] Address [address] [place] [address] Phone Care Team Providers Care Webfed Offset Press Operator Name Role Phone Gagan Mcginnis MD Primary Care Provider [phone] Gagan Mcginnis MD Primary Care Provider [phone] Gagan Mcginnis MD Unavailable Encounter Details Date Type Department Care Team (Late st Contact Info) Description 05/08/2021 Lab Requisition [facility] Laboratory Services [address] [place] [address] Gagan Mcginnis MD [address] [place] [address] [address] [place] [address] Encounter for screening for COVID-19 Social History [...] Associated Diagnosis Comments SARS-COV-2 BY MOLECULAR Routine 05/08/2021 7:48 AM CDT Encounter for screening for COVID-19 documented in this encounter Results * SARS-COV-2 BY MOLECULAR (05/08/2021 7:48 AM CDT) SARSCOV2 NOT DETECTED (Referen ce Range for this test is Not Detected ) [facility] THERMOFISHER FAST DX 05/09/2021 6:22 AM CDT [facility] Comment:This test was perfor med by a RT-PCR method. Other No Phlebotomy Charged / Unknown 05/08/2021 7:48 AM CDT 05/08/2021 10:54 AM CDT Narrative [facility] - 05/09/2021 6:22 AM CDT Authorized Fact Sheets about this test for providers and patients are available at: https://www.fda.gov/medical-devices/cguxgywqj-abarhvzwpx-qbqvpsp-devices/emergen cy-us e-authorizations us Gagan Mcginnis MD MICROBIOLOGY - GENERAL ORDERAB LES Final Result [facility] [address] [place] [address], documented in this encounter Visit Diagnoses Diagnosis Encounter for screening for COVID-19 documented in this encounter Additional Health Concerns Infection Onset Date Last Indicated Resolved Time COVID - 19 04/24/2021 08/14/2021 08/16/2021 6:12 AM FIBERGLASSER COVID - 19 06/12/2021 07/10/2021 07/16/2021 12:1 8 AM FIBERGLASSER COVID - 19 07/17/2021 07/31/2021 08/06/2021 12:1 6 AM FIBERGLASSER COVID - 19 Confirmed 08/14/2021 08/14/2021 022 12:17 AM FIBERGLASSER COVID - 19 09/11/2021 09/11/2021 10/01/2021 12:1 6 AM FIBERGLASSER COVID - 19 11/13/2021 06/11/2022 06/21/2022 12:1 6 AM FIBERGLASSER COVID - 19 07/30/2022 10/15/2022 10/25/2022 12:1 6 AM CDT Respiratory Rule-Out 09/06/2024 09/06/2024 025 12:16 AM FIBERGLASSER documented as of this encounter Care Teams Webfed Offset Press Operator Relationship Specialty Start Date End Date Gagan Mcginnis MD [address] [place] [address] [address] [place] [address] PCP - General Family Medicine 08/21/20 06/11/21 Gagan Mcginnis MD [address] [facility] [place] [address] PCP - General Family Medicine 06/12/21 Gagan Mcginnis MD [address] [facility] [place] [address] Family Medicine 06/12/21 documented as of this encounter
--- OUTSIDE RECORDS SUMMARY | 2024-09-28 09:47 | XMS_ITS | Encounter Summary ---
Author Organization [facility] Address [address] [place] [address] Phone Care Team Providers Care Building Components Designer Name Role Phone Gagan Mcginnis MD Primary Care Provider [phone] Gagan Mcginnis MD Unavailable [phone] Encounter Details Date Type Department Care Team (Late st Contact Info) Description 09/07/2024 Lab Requisition [facility] Laboratory Services 1 [place] [phone] Gagan Mcginnis MD [address] [place] [address] [address] Moderate intellectual disabilities; Shaken syndrome, initial encounter; Other petroleum terminal plant operator (current) drug therapy; Attention-deficit hyperactivity disorder, unspecified type; Epilepsy, unspecified, not intractable, without status epilepticus (HCC) Social History Tobacco Use Types Packs/Day Years [...] Procedure Name Priority Date/Time Associated Diagnosis Comments CBC WITH AUTO DIFFERENTIAL Routine 09/07/2024 6:41 AM RAIL CAR MECHANIC Moderate intellectual disabilities Shaken syndrome, initial encounter Other custodial (current) drug therapy Attention-deficit hyperactivity disorder, unspecified type Epilepsy, unspecified, not intractable, without status epilepticus (HCC) TEGRETOL (CARBAMAZEPINE) Routine 09/07/2024 6:41 AM RAIL CAR MECHANIC Moderate intellectual disabilities Shaken infant syndrome, initial encounter Other petroleum terminal plant operator (current) drug therapy Attention-deficit hyperactivity disorder, unspecified type Epilepsy, unspecified, not intractable, without status epilepticus (HCC) COMPLETE BLOOD COUNT (CBC) WITH DIFF Routine 09/07/2024 6:41 AM RAIL CAR MECHANIC Moderate intellectual disabilities Shaken syndrome, initial encounter Other custodial (current) drug therapy Attention-deficit hyperactivity disorder, unspecified type Epilepsy, unspecified, not intractable, without status epilepticus (HCC) BASIC METABOLIC PANEL W/ CALCIUM TOTAL Routine 09/07/2024 6:41 AM RAIL CAR MECHANIC Moderate intellectual disabilities Shaken syndrome, initial encounter Other petroleum terminal plant operator (current) drug therapy Attention-deficit hyperactivity disorder, unspecified type Epilepsy, unspecified, not intractable, without status epilepticus (HCC) documented in this encounter Results * (ABNORMAL) CBC WITH AUTO DIFFERENTIAL (09/07/2024 6:41 AM RAIL CAR MECHANIC) WBC 5.97 4.00 - 12.00 10(3)/mcL 09/07/2024 8:21 AM [facility] RBC 3.99(L) 4.40 - 5.80 10(6)/mcL 09/07/2024 8:21 AM [facility] HEMOGLOBIN (HGB) 12.0(L) 13.0 - 16.5 g/dL 09/07/2024 8:21 AM [facility] HEMATOCRIT (HCT) 37.1(L) 38.0 - 50.0 % 09/07/2024 8:21 AM [facility] MCV 93.0 82.0 - 96.0 fL 09/07/2024 8:21 AM [facility] MCH 30.1 26.0 - 32.0 pg 09/07/2024 8:21 AM [facility] MCHC 32.3 31.0 - 36.0 g/dL 09/07/2024 8:21 AM [facility] PLATELET COUNT 215 140 - 440 10(3)/mcL 09/07/2024 8:21 AM [facility] RDW 12.6 11.8 - 15.5 % 09/07/2024 8:21 AM [facility] MPV 9.6 8.0 - 12.6 fL 09/07/2024 8:21 AM [facility] NEUTROPHILS 59.9 40.0 - 68.0 % 09/07/2024 8:21 AM [facility] LYMPHOCYTES 26.5 19.0 - 49.0 % 09/07/2024 8:21 AM [facility] MONOCYTES 10.1 3.0 - 13.0 % 09/07/2024 8:21 AM [facility] EOSINOPHILS 2.8 0.0 - 8.0 % 09/07/2024 8:21 AM [facility] BASOPHILS 0.7 0.0 - 1.0 % 09/07/2024 8:21 AM [facility] ABSOLUTE NEUTROPHILS 3.58 1.40 - 5.30 10(3)/[facility] 09/07/2024 8:21 AM [facility] ABSOLUTE LYMPHOCYTES 1.58 0.90 - 3.30 10(3)/[facility] 09/07/2024 8:21 AM [facility] ABSOLUTE MONOCYTES 0.60 0.10 - 0.90 10(3)/[facility] 09/07/2024 8:21 AM [facility] ABSOLUTE EOSINOPHIL 0.17 0.00 - 0.50 10(3)/[facility] 09/07/2024 8:21 AM [facility] ABSOLUTE BASOPHILS 0.04 0.00 - 0.10 10(3)/[facility] 09/07/2024 8:21 AM [facility] NRBC PER 100 WBC 0 09/07/19 8:21 AM [facility] Blood Venipuncture / Unknown 09/07/2024 6:41 AM [facility] 09/07/2024 8:04 AM [facility] Gagan Mcginnis MD HEMATOLOGY ORDERABLES Final Re sult [facility] [place] [address] * TEGRETOL (CARBAMAZEPINE) (09/07/2024 6:41 AM RAIL CAR MECHANIC) TEGRETOL 8.4 8.0 - 12.0 mcg/mL 09/07/2024 2:38 PM RAIL CAR MECHANIC [facility] Blood Venipuncture / Unknown 09/07/2024 6:41 AM RAIL CAR MECHANIC 09/07/2024 8:04 AM RAIL CAR MECHANIC Gagan Mcginnis MD CHEMISTRY ORDERABLES Final Res ult Performing Organization Address City/[facility]/ZIP Co de Phone Number [facility] [address] [place] [address], * (ABNORMAL) BASIC METABOLIC PANEL W/ CALCIUM TOTAL (09/07/2024 6:41 AM RAIL CAR MECHANIC) SODIUM 141 136 - 145 mmol/L 09/07/2024 8:48 AM [facility] POTASSIUM 3.7 3.5 - 5.1 mmol/L 09/07/2024 8:48 AM RAIL CAR MECHANIC [facility] CHLORIDE 106 98 - 107 mmol/L 09/07/2024 8:48 AM RAIL CAR MECHANIC [facility] CO2, VENOUS 27 22 - 30 mmol/L 09/07/2024 8:48 AM RAIL CAR MECHANIC [facility] ANION GAP 11.7 <18.0 mmol/L 09/07/2024 8:48 AM RAIL CAR MECHANIC [facility] GLUCOSE 81 70 - 99 mg/dL 09/07/2024 8:48 AM RAIL CAR MECHANIC [facility] BUN 17 9 - 21 mg/dL 09/07/2024 8:48 AM [facility] CREATININE, BLOOD 0.79 0.70 - 1.30 mg/dL 09/07/2024 8:48 AM RAIL CAR MECHANIC [facility] BUN/CREATININE RATIO 22(H) 12 - 20 ratio 09/07/2024 8:48 AM RAIL CAR MECHANIC [facility] CALCIUM 8.8 8.7 - 10.5 mg/dL 09/07/2024 8:48 AM RAIL CAR MECHANIC [facility] GFR, ESTIMATED >60 >=60 09/07/2024 8:48 AM RAIL CAR MECHANIC [facility] Comment: Creatinine Clearance is the preferred criteria for selecting drug dose adjustments in renally impaired patients. The GFR is provided as additional pertinent clinical information. GFR is reported in mL/min/1.73 sq m. Calculation based on the Chronic Kidney Disease Epidemiology Collaboration (CKD- EPI) equation refit without adjustment for race. GFR, EST. >60 >=60 025 8:48 AM RAIL CAR MECHANIC [facility] GFR, EST. NONAFRICAN >60 >=60 09/07/2024 8:48 AM RAIL CAR MECHANIC [facility] Blood Venipuncture / Unknown 09/07/2024 6:41 AM RAIL CAR MECHANIC 09/07/2024 8:04 AM RAIL CAR MECHANIC us Gagan Mcginnis MD CHEMISTRY ORDERABLES Final Res ult [facility] [address] [place] [address] documented in this encounter Visit Diagnoses Diagnosis Moderate intellectual disabilities Shaken syndrome, initial encounter Other petroleum terminal plant operator (current) drug therapy Attention-deficit hyperactivity disorder, unspecified type Epilepsy, unspecified, not intractable, without status epilepticus (HCC) documented in this encounter Additional Health Concerns Infection Onset Date Last Indicated Resolved Time Respiratory Rule-Out 09/06/2024 09/06/2024 025 12:16 AM RAIL CAR MECHANIC documented as of this encounter Care Teams Building Components Designer Relationship Specialty Start Date End Date Gagan Mcginnis MD [address] [facility] [address] [place] [address] PCP - General Family Medicine 06/12/21 Gagan Mcginnis MD [address] [facility] [place] [place] [address] Family Medicine 06/12/21 documented as of this encounter
--- OUTSIDE RECORDS SUMMARY | 2024-09-28 09:47 | XMS_ITS | Encounter Summary ---
Author Organization [facility] Address [address] [place] [address] Phone Care Team Providers Care Technical Expert Name Role Phone Gagan Mcginnis MD Primary Care Provider Gagan Mcginnis MD Unavailable [phone] Encounter Details Date Type Department Care Team (Late st Contact Info) Description 01/15/2022 Lab Requisition [facility] Laboratory Services 1 [place] [phone] Gagan Mcginnis MD [address] [place] [address] [address] Encounter for screening for COVID-19 Social History [...] Associated Diagnosis Comments SARS-COV-2 BY MOLECULAR Routine 01/15/2022 7:23 AM CDT Encounter for screening for COVID-19 documented in this encounter Results * SARS-COV-2 BY MOLECULAR (01/15/2022 7:23 AM CDT) SARSCOV2 NOT DETECTED (Referenc e Range for this test is Not Detected) [facility] DIASORIN LIAISON MDX [id number] 01/16/2022 6:47 PM CDT [facility] Comment:This test was perfor med by a RT-PCR method. Other Non-Phlebotomy Collection / Unknown 01/15/2022 7:23 AM CDT 01/15/2022 10:32 AM CDT Narrative [facility] - 01/16/2022 6:47 PM CDT Authorized Fact Sheets about this test for providers and patients are available at: https://www.fda.gov/medical-devices/ezfvtvmhv-fgrslpfdcn-bgdwiac-devices/emergen -us e-authorizations us Gagan Mcginnis MD MICROBIOLOGY - GENERAL ORDERAB LES Final Result [facility] [address] [place] [address], documented in this encounter Visit Diagnoses Diagnosis Encounter for screening for COVID-19 documented in this encounter Additional Health Concerns Infection Onset Date Last Indicated Resolved Time COVID - 19 11/13/2021 06/11/2022 06/21/2022 12:1 6 AM SUPERVISOR TESTING COVID - 19 07/30/2022 10/15/2022 10/25/2022 12:1 6 AM CDT Respiratory Rule-Out 09/06/2024 09/06/2024 025 12:16 AM SUPERVISOR TESTING documented as of this encounter Care Teams Technical Expert Relationship Specialty Start Date End Date Gagan Mcginnis MD 4 [facility] [address] [place] [address] PCP - General Family Medicine 06/12/21 Gagan Mcginnis MD 4 [facility] [address] [place] [address] Family Medicine 06/12/21 documented as of this encounter
--- OUTSIDE RECORDS SUMMARY | 2024-09-28 09:47 | XMS_ITS | Encounter Summary ---
Author Organization [facility] Address [address] [place] [address] Phone Care Team Providers Care Dishcloth Folder Name Role Phone Gagan Mcginnis MD Primary Care Provider [phone] Gagan Mcginnis MD Unavailable [phone] Encounter Details Date Type Department Care Team (Late st Contact Info) Description 09/11/2021 Lab Requisition [facility] Laboratory Services 1 [place] [phone] Gagan Mcginnis MD [address] [place] [address] [address] Encounter for screening for COVID-19 Social History [...] Associated Diagnosis Comments SARS-COV-2 BY MOLECULAR Routine 09/11/2021 6:39 AM RANCH MANAGER Encounter for screening for COVID-19 documented in this encounter Results * SARS-COV-2 BY MOLECULAR (09/11/2021 6:39 AM RANCH MANAGER) SARSCOV2 NOT DETECTED (Referen ce Range for this test is Not Detected ) [facility] THERMOFISHER FAST DX 09/11/2021 11:49 PM RANCH MANAGER [facility] Comment:This test was perfor med by a RT-PCR method. Other Non-Phlebotomy Collection / Unknown 09/11/2021 6:39 AM RANCH MANAGER 09/11/2021 10:53 AM RANCH MANAGER Narrative [facility] - 09/11/2021 11:49 PM RANCH MANAGER Authorized Fact Sheets about this test for providers and patients are available at: https://www.fda.gov/medical-devices/zhrzocvfv-tgebmsernh-udfmwco-devices/emergen cy-us e-authorizations us Gagan Mcginnis MD MICROBIOLOGY - GENERAL ORDERAB LES Final Result [facility] [address] [place] [address], documented in this encounter Visit Diagnoses Diagnosis Encounter for screening for COVID-19 documented in this encounter Additional Health Concerns Infection Onset Date Last Indicated Resolved Time COVID - 19 09/11/2021 09/11/2021 10/01/2021 12:1 6 AM RANCH MANAGER COVID - 19 11/13/2021 06/11/2022 06/21/2022 12:1 6 AM RANCH MANAGER COVID - 19 07/30/2022 10/15/2022 10/25/2022 12:1 6 AM CDT Respiratory Rule-Out 09/06/2024 09/06/2024 025 12:16 AM RANCH MANAGER documented as of this encounter Care Teams Dishcloth Folder Relationship Specialty Start Date End Date Gagan Mcginnis MD [address] [facility] [address] [place] [address] PCP - General Family Medicine 06/12/21 Gagan Mcginnis MD [address] [facility] [address] [place] [address] Family Medicine 06/12/21 documented as of this encounter
--- OUTSIDE RECORDS SUMMARY | 2024-09-28 09:47 | XMS_ITS | Encounter Summary ---
Author Organization [facility] Address [address] [place] [address] Phone Care Team Providers Care Project Geologist Name Role Phone Gagan Mcginnis MD Primary Care Provider [phone] Gagan Mcginnis MD Unavailable [phone] Encounter Details Date Type Department Care Team (Late st Contact Info) Description 02/19/2022 Lab Requisition [facility] Laboratory Services 1 [place] [phone] Gagan Mcginnis MD [address] [place] [address] [address] Encounter for screening for COVID-19 Social History [...] Associated Diagnosis Comments SARS-COV-2 BY MOLECULAR Routine 02/19/2022 7:13 AM CDT Encounter for screening for COVID-19 documented in this encounter Results * SARS-COV-2 BY MOLECULAR (02/19/2022 7:13 AM CDT) SARSCOV2 NOT DETECTED (Referen ce Range for this test is Not Detected ) [facility] THERMOFISHER FAST DX 02/20/2022 12:04 AM CDT [facility] Comment:This test was perfor med by a RT-PCR method. Other Non-Phlebotomy Collection / Unknown 02/19/2022 7:13 AM CDT 02/19/2022 12:06 PM CDT Narrative [facility] - 02/20/2022 12:04 AM CDT Authorized Fact Sheets about this test for providers and patients are available at: https://www.fda.gov/medical-devices/uerxenmhv-vdgpxdfezb-qxrbueu-devices/emergen -us e-authorizations us Gagan Mcginnis MD MICROBIOLOGY - GENERAL ORDERAB LES Final Result [facility] [address] [place] [address], documented in this encounter Visit Diagnoses Diagnosis Encounter for screening for COVID-19 documented in this encounter Additional Health Concerns Infection Onset Date Last Indicated Resolved Time COVID - 19 11/13/2021 06/11/2022 06/21/2022 12:1 6 AM COMMERCIAL SPECIALIST COVID - 19 07/30/2022 10/15/2022 10/25/2022 12:1 6 AM CDT Respiratory Rule-Out 09/06/2024 09/06/2024 025 12:16 AM COMMERCIAL SPECIALIST documented as of this encounter Care Teams Project Geologist Relationship Specialty Start Date End Date Gagan Mcginnis MD [address] [place] [address] [address] [place] [address] PCP - General Family Medicine 06/12/21 Gagan Mcginnis MD [address] [facility] [address] [place] [address] Family Medicine 06/12/21 documented as of this encounter
--- OUTSIDE RECORDS SUMMARY | 2024-09-28 09:47 | XMS_ITS | Encounter Summary ---
Author Organization [facility] Address [address] [place] [address] Phone Care Team Providers Care Tanyard Worker Name Role Phone Gagan Mcginnis MD Primary Care Provider [phone] Gagan Mcginnis MD Unavailable [phone] Encounter Details Date Type Department Care Team (Late st Contact Info) Description 05/14/2022 Lab Requisition [facility] Laboratory Services 1 [place] [phone] Gagan Mcginnis MD [address] [place] [address] [address] Encounter for screening for COVID-19 Social History [...] Associated Diagnosis Comments SARS-COV-2 BY MOLECULAR Routine 05/14/2022 7:30 AM CDT Encounter for screening for COVID-19 documented in this encounter Results * SARS-COV-2 BY MOLECULAR (05/14/2022 7:30 AM CDT) SARSCOV2 NOT DETECTED (Referen ce Range for this test is Not Detected ) [facility] THERMOFISHER FAST DX 05/15/2022 12:18 AM CDT [facility] Comment:This test was perfor med by a RT-PCR method. Other Non-Phlebotomy Collection / Unknown 05/14/2022 7:30 AM CDT 05/14/2022 11:37 AM CDT Narrative [facility] - 05/15/2022 12:18 AM CDT Authorized Fact Sheets about this test for providers and patients are available at: https://www.fda.gov/medical-devices/upenvxaja-rxdxpslxuy-syxrobd-devices/emergen -us e-authorizations us Gagan Mcginnis MD MICROBIOLOGY - GENERAL ORDERAB LES Final Result [facility] [address] [place] [address], documented in this encounter Visit Diagnoses Diagnosis Encounter for screening for COVID-19 documented in this encounter Additional Health Concerns Infection Onset Date Last Indicated Resolved Time COVID - 19 11/13/2021 06/11/2022 06/21/2022 12:1 6 AM REGISTERED NURSE PRACTITIONER COVID - 19 07/30/2022 10/15/2022 10/25/2022 12:1 6 AM CDT Respiratory Rule-Out 09/06/2024 09/06/2024 025 12:16 AM REGISTERED NURSE PRACTITIONER documented as of this encounter Care Teams Tanyard Worker Relationship Specialty Start Date End Date Gagan Mcginnis MD [address] [place] [address] [address] [place] [address] PCP - General Family Medicine 06/12/21 Gagan Mcginnis MD 4 [facility] [address] [place] [address] Family Medicine 06/12/21 documented as of this encounter
--- OUTSIDE RECORDS SUMMARY | 2024-09-28 09:47 | XMS_ITS | Encounter Summary ---
Author Organization [facility] Address [address] [place] [address] Phone Care Team Providers Care Press Operator Meat Name Role Phone Gagan Mcginnis MD Primary Care Provider [phone] Gagan Mcginnis MD Unavailable [phone] Encounter Details Date Type Department Care Team (Late st Contact Info) Description 09/10/2022 Lab Requisition [facility] Laboratory Services 1 [place] [phone] Gagan Mcginnis MD [address] [place] [address] [address] Encounter for screening for COVID-19 Social History [...] Associated Diagnosis Comments SARS-COV-2 BY MOLECULAR Routine 09/10/2022 7:32 AM ENTERPRISE SALES EXECUTIVE Encounter for screening for COVID-19 documented in this encounter Results * SARS-COV-2 BY MOLECULAR (09/10/2022 7:32 AM ENTERPRISE SALES EXECUTIVE) SARSCOV2 NOT DETECTED (Referen ce Range for this test is Not Detected ) [facility] THERMOFISHER FAST DX 09/10/2022 11:05 PM ENTERPRISE SALES EXECUTIVE [facility] Comment:This test was perfor med by a RT-PCR method. Other Non-Phlebotomy Collection / Unknown 09/10/2022 7:32 AM ENTERPRISE SALES EXECUTIVE 09/10/2022 10:23 AM ENTERPRISE SALES EXECUTIVE Narrative [facility] - 09/10/2022 11:05 PM ENTERPRISE SALES EXECUTIVE Authorized Fact Sheets about this test for providers and patients are available at: https://www.fda.gov/medical-devices/akyhilyfb-iaclvzflqm-vixvecc-devices/emergen -us e-authorizations us Gagan cMginnis MD MICROBIOLOGY - GENERAL ORDERAB LES Final Result [facility] [address] [place] [address], documented in this encounter Visit Diagnoses Diagnosis Encounter for screening for COVID-19 documented in this encounter Additional Health Concerns Infection Onset Date Last Indicated Resolved Time COVID - 19 07/30/2022 10/15/2022 10/25/2022 12:1 6 AM CDT Respiratory Rule-Out 09/06/2024 09/06/2024 025 12:16 AM ENTERPRISE SALES EXECUTIVE documented as of this encounter Care Teams Press Operator Meat Relationship Specialty Start Date End Date Gagan Mcginnis MD [address] [place] [address] [place] [address] PCP - General Family Medicine 06/12/21 Gagan Mcginnis MD [address] [place] [address] [place] [address] Family Medicine 06/12/21 documented as of this encounter
--- OUTSIDE RECORDS SUMMARY | 2024-09-28 09:47 | XMS_ITS | Encounter Summary ---
Author Organization [facility] Address [address] [place] [address] Phone Care Team Providers Care Viticulturist Name Role Phone Gagan Mcginnis MD Primary Care Provider [phone] Gagan Mcginnis MD Unavailable [phone] Encounter Details Date Type Department Care Team (Late st Contact Info) Description 08/20/2022 Lab Requisition [facility] Laboratory Services 1 [place] [id number] Gagan Mcginnis MD [address] [place] [address] [address] Encounter for screening for COVID-19 Social History [...] Associated Diagnosis Comments SARS-COV-2 BY MOLECULAR Routine 08/20/2022 7:18 AM HAND TUBE WINDER Encounter for screening for COVID-19 documented in this encounter Results * SARS-COV-2 BY MOLECULAR (08/20/2022 7:18 AM HAND TUBE WINDER) SARSCOV2 NOT DETECTED (Referen ce Range for this test is Not Detected ) [facility] THERMOFISHER FAST DX 08/20/2022 8:36 PM HAND TUBE WINDER [facility] Comment:This test was perfor med by a RT-PCR method. Other COVID 19 Collection / Unknown 08/20/2022 7:18 AM HAND TUBE WINDER 08/20/2022 10:06 AM HAND TUBE WINDER Narrative [facility] - 08/20/2022 8:36 PM HAND TUBE WINDER Authorized Fact Sheets about this test for providers and patients are available at: https://www.fda.gov/medical-devices/rexfdtyrp-yporhjmomi-cgimrvt-devices/emergen -us e-authorizations us Gagan Mcginnis MD MICROBIOLOGY - GENERAL ORDERAB LES Final Result [facility] [address] [place] [address], documented in this encounter Visit Diagnoses Diagnosis Encounter for screening for COVID-19 documented in this encounter Additional Health Concerns Infection Onset Date Last Indicated Resolved Time COVID - 19 07/30/2022 10/15/2022 10/25/2022 12:1 6 AM CDT Respiratory Rule-Out 09/06/2024 09/06/2024 025 12:16 AM HAND TUBE WINDER documented as of this encounter Care Teams Viticulturist Relationship Specialty Start Date End Date Gagan Mcginnis MD [address] [place] [address] [place] [address] PCP - General Family Medicine 06/12/21 Gagan Mcginnis MD [address] [place] [address] [place] [address] Family Medicine 06/12/21 documented as of this encounter
--- OUTSIDE RECORDS SUMMARY | 2024-09-28 09:47 | XMS_ITS | Encounter Summary ---
Author Organization [facility] Address [address] [place] [address] Phone Care Team Providers Care Farmworker Bulbs Name Role Phone Gagan Mcginnis MD Primary Care Provider [phone] Gagan Mcginnis MD Unavailable [phone] Encounter Details Date Type Department Care Team (Late st Contact Info) Description 08/13/2022 Lab Requisition [facility] Laboratory Services 1 [place] [phone] Gagan Mcginnis MD [address] [place] [address] [address] Encounter for screening for COVID-19 Social History [...] Associated Diagnosis Comments SARS-COV-2 BY MOLECULAR Routine 08/13/2022 7:31 AM BENEFITS COORDINATOR Encounter for screening for COVID-19 documented in this encounter Results * SARS-COV-2 BY MOLECULAR (08/13/2022 7:31 AM BENEFITS COORDINATOR) SARSCOV2 NOT DETECTED (Referen ce Range for this test is Not Detected ) [facility] THERMOFISHER FAST DX 08/13/2022 10:53 PM BENEFITS COORDINATOR [facility] Comment:This test was perfor med by a RT-PCR method. Other Non-Phlebotomy Collection / Unknown 08/13/2022 7:31 AM BENEFITS COORDINATOR 08/13/2022 10:18 AM BENEFITS COORDINATOR Narrative [facility] - 08/13/2022 10:53 PM BENEFITS COORDINATOR Authorized Fact Sheets about this test for providers and patients are available at: https://www.fda.gov/medical-devices/geyocinki-rgpboqaknz-ousgsje-devices/emergen -us e-authorizations us Gagan Mcginnis MD MICROBIOLOGY - GENERAL ORDERAB LES Final Result [facility] [address] [place] [address], documented in this encounter Visit Diagnoses Diagnosis Encounter for screening for COVID-19 documented in this encounter Additional Health Concerns Infection Onset Date Last Indicated Resolved Time COVID - 19 07/30/2022 10/15/2022 10/25/2022 12:1 6 AM CDT Respiratory Rule-Out 09/06/2024 09/06/2024 025 12:16 AM BENEFITS COORDINATOR documented as of this encounter Care Teams Farmworker Bulbs Relationship Specialty Start Date End Date Gagan Mcginnis MD [address] [place] [address] [place] [address] PCP - General Family Medicine 06/12/21 Gagan Mcginnis MD [address] [place] [address] [place] [address] Family Medicine 06/12/21 documented as of this encounter
--- OUTSIDE RECORDS SUMMARY | 2024-09-28 09:47 | XMS_ITS | Encounter Summary ---
Author Organization [facility] Address [address] [place] [address] Phone Care Team Providers Care Mortgage Accounting Clerk Name Role Phone Gagan Mcginnis MD Primary Care Provider [phone] Gagan Mcginnis MD Unavailable [phone] Encounter Details Date Type Department Care Team (Late st Contact Info) Description 12/04/2021 Lab Requisition [facility] Laboratory Services 1 [place] [phone] Gagan Mcginnis MD [address] [place] [address] [address] Encounter for screening for COVID-19 Social History [...] Associated Diagnosis Comments SARS-COV-2 BY MOLECULAR Routine 12/04/2021 7:11 AM CDT Encounter for screening for COVID-19 documented in this encounter Results * SARS-COV-2 BY MOLECULAR (12/04/2021 7:11 AM CDT) SARSCOV2 NOT DETECTED (Referen ce Range for this test is Not Detected ) [facility] THERMOFISHER FAST DX 12/04/2021 11:40 PM CDT [facility] Comment:This test was perfor med by a RT-PCR method. Other Non-Phlebotomy Collection / Unknown 12/04/2021 7:11 AM CDT 12/04/2021 12:36 PM CDT Narrative [facility] - 12/04/2021 11:40 PM CDT Authorized Fact Sheets about this test for providers and patients are available at: https://www.fda.gov/medical-devices/vzealyyiz-edaqqobfsz-myayyss-devices/emergen -us e-authorizations us Gagan Mcginnis MD MICROBIOLOGY - GENERAL ORDERAB LES Final Result [facility] [address] [place] [address], documented in this encounter Visit Diagnoses Diagnosis Encounter for screening for COVID-19 documented in this encounter Additional Health Concerns Infection Onset Date Last Indicated Resolved Time COVID - 19 11/13/2021 06/11/2022 06/21/2022 12:1 6 AM COMMUNITY ORGANIZATION DIRECTOR COVID - 19 07/30/2022 10/15/2022 10/25/2022 12:1 6 AM CDT Respiratory Rule-Out 09/06/2024 09/06/2024 025 12:16 AM COMMUNITY ORGANIZATION DIRECTOR documented as of this encounter Care Teams Mortgage Accounting Clerk Relationship Specialty Start Date End Date Gagan Mcignnis MD [address] [place] [address] [address] [place] [address] PCP - General Family Medicine 06/12/21 Gagan Mcginnis MD [address] [facility] [address] [place] [address] Family Medicine 06/12/21 documented as of this encounter
--- OUTSIDE RECORDS SUMMARY | 2024-09-28 09:47 | XMS_ITS | Encounter Summary ---
Author Organization [facility] Address [address] [place] [address] Phone Care Team Providers Care Generator Man Name Role Phone Gagan Mcginnis MD Primary Care Provider [phone] Gagan Mcginnis MD Unavailable Encounter Details Date Type Department Care Team (Late st Contact Info) Description 09/06/2024 Lab Requisition [facility] Laboratory Services 1 [place] [address] Gagan Mcginnis MD [address] [place] [address] [place] [address] Contact with and (suspected) exposure to unspecified communicable disease; Acute cough Social History Tobacco Use Types Packs/Day Years [...] documented as of this encounter Visit Diagnoses Diagnosis Contact with and (suspected) exposure to unspecified communicable disease Acute cough documented in this encounter Additional Health Concerns Infection Onset Date Last Indicated Resolved Time Respiratory Rule-Out 09/06/2024 09/06/2024 025 12:16 AM TSA SCREENER documented as of this encounter Care Teams Generator Man Relationship Specialty Start Date End Date Gagan Mcginnis MD [address] [facility] [address] [place] [address] PCP - General Family Medicine 06/12/21 Gagan Mcginnis MD 4 [facility] [address] [place] [address] Family Medicine 06/12/21 documented as of this encounter
--- OUTSIDE RECORDS SUMMARY | 2024-09-28 09:47 | XMS_ITS | Encounter Summary ---
Author Organization [facility] Address [address] [place] [address] Phone Care Team Providers Care Lan Engineer Name Role Phone Gagan Mcginnis MD Primary Care Provider [phone] Gagan Mcginnis MD Unavailable [phone] Encounter Details Date Type Department Care Team (Late st Contact Info) Description 10/08/2022 Lab Requisition [facility] Laboratory Services 1 [place] [phone] Gagan Mcginnis MD [address] [place] [address] [address] Encounter for screening for COVID-19 Social History [...] Associated Diagnosis Comments SARS-COV-2 BY MOLECULAR Routine 10/08/2022 7:22 AM PHYSICAL SCIENCE TECHNICIAN Encounter for screening for COVID-19 documented in this encounter Results * SARS-COV-2 BY MOLECULAR (10/08/2022 7:22 AM PHYSICAL SCIENCE TECHNICIAN) SARSCOV2 NOT DETECTED (Referen ce Range for this test is Not Detected ) [facility] [place] [facility] THERMOFISHER FAST DX 10/08/2022 7:37 PM PHYSICAL SCIENCE TECHNICIAN [facility] Comment:This test was perfor med by a RT-PCR method. Other Non-Phlebotomy Collection / Unknown 10/08/2022 7:22 AM PHYSICAL SCIENCE TECHNICIAN 10/08/2022 10:00 AM PHYSICAL SCIENCE TECHNICIAN Narrative [facility] - 10/08/2022 7:37 PM PHYSICAL SCIENCE TECHNICIAN Authorized Fact Sheets about this test for providers and patients are available at: https://www.fda.gov/medical-devices/slzbgqrov-mwkffraefo-tuyghfw-devices/emergen cy-us e-authorizations us Gagan Mcginnis MD MICROBIOLOGY - GENERAL ORDERAB LES Final Result [facility] [address] [place] [address], documented in this encounter Visit Diagnoses Diagnosis Encounter for screening for COVID-19 documented in this encounter Additional Health Concerns Infection Onset Date Last Indicated Resolved Time COVID - 19 07/30/2022 10/15/2022 10/25/2022 12:1 6 AM CDT Respiratory Rule-Out 09/06/2024 09/06/2024 025 12:16 AM PHYSICAL SCIENCE TECHNICIAN documented as of this encounter Care Teams Lan Engineer Relationship Specialty Start Date End Date Gagan Mcginnis MD [address] [place] [address] [place] [address] PCP - General Family Medicine 06/12/21 Gagan Mcginnis MD [address] [place] [address] [place] [address] Family Medicine 06/12/21 documented as of this encounter
--- OUTSIDE RECORDS SUMMARY | 2024-09-28 09:47 | XMS_ITS | Encounter Summary ---
Author Organization [facility] Address [address] [place] [address] Phone Care Team Providers Care Wad Blanking Press Adjuster Name Role Phone Gagan Mcginnis MD Primary Care Provider [phone] Gagan Mcginnis MD Unavailable [phone] Encounter Details Date Type Department Care Team (Late st Contact Info) Description 09/24/[address] [facility] Laboratory Services 1 [place] [phone] Gagan Mcginnis MD [address] [place] [address] [address] Encounter for screening for COVID-19 Social History [...] Associated Diagnosis Comments SARS-COV-2 BY MOLECULAR Routine 09/24/2022 7:37 AM MIXING ENGINEER Encounter for screening for COVID-19 documented in this encounter Results * SARS-COV-2 BY MOLECULAR (09/24/2022 7:37 AM MIXING ENGINEER) SARSCOV2 NOT DETECTED (Referen ce Range for this test is Not Detected ) [facility] THERMOFISHER FAST DX 09/25/2022 11:35 AM MIXING ENGINEER [facility] Comment:This test was perfor med by a RT-PCR method. Other Non-Phlebotomy Collection / Unknown 09/24/2022 7:37 AM MIXING ENGINEER 09/24/2022 10:23 AM MIXING ENGINEER Narrative [facility] - 09/25/2022 11:35 AM MIXING ENGINEER Authorized Fact Sheets about this test for providers and patients are available at: https://www.fda.gov/medical-devices/qfzusjwri-nbsbzwickh-mknaylm-devices/emergen -us e-authorizations us Gagan Mcginnis MD MICROBIOLOGY - GENERAL ORDERAB LES Final Result [facility] [address] [place] [address], documented in this encounter Visit Diagnoses Diagnosis Encounter for screening for COVID-19 documented in this encounter Additional Health Concerns Infection Onset Date Last Indicated Resolved Time COVID - 19 07/30/2022 10/15/2022 10/25/2022 12:1 6 AM CDT Respiratory Rule-Out 09/06/2024 09/06/2024 025 12:16 AM MIXING ENGINEER documented as of this encounter Care Teams Wad Blanking Press Adjuster Relationship Specialty Start Date End Date Gagan Mcginnis MD [address] [place] [address] [place] [address] PCP - General Family Medicine 06/12/21 Gagan Mcginnis MD [address] [place] [address] [place] [address] Family Medicine 06/12/21 documented as of this encounter
--- OUTSIDE RECORDS SUMMARY | 2024-09-28 09:47 | XMS_ITS | Encounter Summary ---
Author Organization [facility] Address [address] [place] [address] Phone Care Team Providers Care Housing Assistant Property Manager Name Role Phone Gagan Mcginnis MD Primary Care Provider [phone] Gagan Mcginnis MD Unavailable [phone] Encounter Details Date Type Department Care Team (Late st Contact Info) Description 05/07/2022 Lab Requisition [facility] Laboratory Services 1 [place] [phone] Gagan Mcginnis MD [address] [place] [address] [address] Encounter for screening for COVID-19 Social History [...] Associated Diagnosis Comments SARS-COV-2 BY MOLECULAR Routine 05/07/2022 7:24 AM CDT Encounter for screening for COVID-19 documented in this encounter Results * SARS-COV-2 BY MOLECULAR (05/07/2022 7:24 AM CDT) SARSCOV2 NOT DETECTED (Referen ce Range for this test is Not Detected ) [facility] THERMOFISHER FAST DX 05/08/2022 5:43 AM CDT [facility] Comment:This test was perfor med by a RT-PCR method. Other Non-Phlebotomy Collection / Unknown 05/07/2022 7:24 AM CDT 05/07/2022 1:56 PM CDT Narrative [facility] - 05/08/2022 5:43 AM CDT Authorized Fact Sheets about this test for providers and patients are available at: https://www.fda.gov/medical-devices/uxnqgbpae-zshatoczfm-ncwmnxu-devices/emergen -us e-authorizations us Gagan Mcginnis MD MICROBIOLOGY - GENERAL ORDERAB LES Final Result [facility] [address] [place] [address], documented in this encounter Visit Diagnoses Diagnosis Encounter for screening for COVID-19 documented in this encounter Additional Health Concerns Infection Onset Date Last Indicated Resolved Time COVID - 19 11/13/2021 06/11/2022 06/21/2022 12:1 6 AM FORESTRY BIOLOGY SPECIALIST COVID - 19 07/30/2022 10/15/2022 10/25/2022 12:1 6 AM CDT Respiratory Rule-Out 09/06/2024 09/06/2024 025 12:16 AM FORESTRY BIOLOGY SPECIALIST documented as of this encounter Care Teams Housing Assistant Property Manager Relationship Specialty Start Date End Date Gagan Mcginnis MD [address] [place] [address] [address] [place] [address] PCP - General Family Medicine 06/12/21 Gagan Mcginnis MD 4 [facility] [address] [place] [address] Family Medicine 06/12/21 documented as of this encounter
--- OUTSIDE RECORDS SUMMARY | 2024-09-28 09:47 | XMS_ITS | Clinical Summary ---
Author Organization [facility] Address [address] [place] [address] Care Team Providers Care Manager Statistics Name Role Phone Gagan Mcginnis MD Primary Care Provider [phone] Allergies No known active allergies Medications ibuprofen 200 mg capsule take 1 capsule by oral route every 6 hours as needed 0 0 02/22/2016 Active carBAMazepine ER (CARBATROL) 300 mg 12 hr capsule take 1 Capsule by ORAL route 2 times every day in PM 0 0 02/24/2014 Active acetaminophen (TYLENOL) 325 mg tablet take 1 tablet by oral route every 4 hours as needed 0 0 02/24/2014 Active Active Problems Problem Noted Date Diagnosed Date Epilepsy undetermined as to focal or generalized 08/24/2015 Overview (11/07/2016): Epilepsy undetermined whether focal or generalized Seizure 08/26/2012 Overview (11/07/2016): Seizure / Convulsions Medical History Medical History Date Comments Undifferentiated attention deficit disorder add Epilepsy (HCC) epilepsy Hx Other Medical ventricular--sh unt Hx 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 Hx Other Medical impaired vision Hx Other Medical hx of lower leg s Hx Other Medical thrombocytopia Hx Other Medical moderate mental retardation Seizure disorder (CMS/HCC) (HCC) Seizure disorder Social History Tobacco Use Types Packs/Day Years Used Date Smoking Tobacco: Never Alcohol Use Standard Drinks/Week Comments No 0 (1 standard drink = 0.6 oz pur e alcohol) Sex and Gender Information Value Date Recorded Sex Assigned at Not on file Legal Sex Male 2:37 AM PRODUCT MANAGENT INTERN Gender Identity Not on file Sexual Orientation Not on file Obstetrics History Last Filed Vital Signs Vital Sign Reading Time Taken Comments Blood Pressure 123/82 02/28/2019 10:16 AM CDT Pulse 96 02/28/2019 10:16 AM CDT Temperature - - Respiratory Rate - - Oxygen Saturation 100% 08/25/2016 10:49 AM PRODUCT MANAGENT INTERN Inhaled Oxygen Concentration - - Weight 49.6 kg (109 lb 6.4 oz) 02/28/2019 10:16 AM CDT Height 172.7 cm (5' 8 ) 02/28/2019 10:16 AM CDT Body Mass Index 16.63 02/28/2019 10:16 AM CDT Plan of Treatment Not on file Insurance [facility] [place] [address] MEDICARE Care Teams Manager Statistics Relationship Specialty Start Date End Date Gagan Mcginnis MD PCP - General 02/22/16
--- OUTSIDE RECORDS SUMMARY | 2024-09-28 09:47 | XMS_ITS | Encounter Summary ---
Author Organization [facility] Address [address] [place] [address] Phone Care Team Providers Care Obiee Report Developer Name Role Phone Gagan Mcginnis MD Primary Care Provider Gagan Mcginnis MD Unavailable [phone] Encounter Details Date Type Department Care Team (Late st Contact Info) Description 07/24/2021 Lab Requisition [facility] Laboratory Services 1 [place] [phone] Gagan Mcginnis MD [address] [place] [address] [address] Encounter for screening for COVID-19 Social History [...] Associated Diagnosis Comments SARS-COV-2 BY MOLECULAR Routine 07/24/2021 7:23 AM IMCU NURSE Encounter for screening for COVID-19 documented in this encounter Results * SARS-COV-2 BY MOLECULAR (07/24/2021 7:23 AM IMCU NURSE) SARSCOV2 NOT DETECTED (Referen ce Range for this test is Not Detected ) [facility] THERMOFISHER FAST DX 07/27/2021 8:57 AM IMCU NURSE [facility] Comment:This test was perfor med by a RT-PCR method. Other No Phlebotomy Charged / Unknown 07/24/2021 7:23 AM IMCU NURSE 07/24/2021 10:51 AM IMCU NURSE Narrative [facility] - 07/27/2021 8:57 AM IMCU NURSE Authorized Fact Sheets about this test for providers and patients are available at: https://www.fda.gov/medical-devices/rpnayupzz-sdfjoenvoy-xerzbbt-devices/emergen -us e-authorizations us Gagan Mcginnis MD MICROBIOLOGY - GENERAL ORDERAB LES Final Result [facility] [address] [place] [address], documented in this encounter Visit Diagnoses Diagnosis Encounter for screening for COVID-19 documented in this encounter Additional Health Concerns Infection Onset Date Last Indicated Resolved Time COVID - 19 04/24/2021 08/14/2021 08/16/2021 6:12 AM IMCU NURSE COVID - 19 07/17/2021 07/31/2021 08/06/2021 12:1 6 AM IMCU NURSE COVID - 19 Confirmed 08/14/2021 08/14/2021 022 12:17 AM IMCU NURSE COVID - 19 09/11/2021 09/11/2021 10/01/2021 12:1 6 AM IMCU NURSE COVID - 19 11/13/2021 06/11/2022 06/21/2022 12:1 6 AM IMCU NURSE COVID - 19 07/30/2022 10/15/2022 10/25/2022 12:1 6 AM CDT Respiratory Rule-Out 09/06/2024 09/06/2024 025 12:16 AM IMCU NURSE documented as of this encounter Care Teams Obiee Report Developer Relationship Specialty Start Date End Date Gagan Mcginnis MD [address] [facility] [place] [address] PCP - General Family Medicine 06/12/21 Gagan Mcginnis MD [address] [place] [address] Family Medicine 06/12/21 documented as of this encounter
--- OUTSIDE RECORDS SUMMARY | 2024-09-28 09:47 | XMS_ITS | Encounter Summary ---
Author Organization [facility] Address [address] [place] [address] Phone Care Team Providers Care Supervisor Pipeline Maintenance Name Role Phone Gagan Mcginnis MD Primary Care Provider [phone] Gagan Mcginnis MD Unavailable [phone] Encounter Details Date Type Department Care Team (Late st Contact Info) Description 02/19/2022 Lab Requisition [facility] Laboratory Services 1 [place] [id number] Gagan Mcginnis MD [address] [place] [address] [address] Encounter for screening for COVID-19 Social History [...] as of this encounter Visit Diagnoses Diagnosis Encounter for screening for COVID-19 documented in this encounter Additional Health Concerns Infection Onset Date Last Indicated Resolved Time COVID - 19 11/13/2021 06/11/2022 06/21/2022 12:1 6 AM GRASS FARM LABORER COVID - 19 07/30/2022 10/15/2022 10/25/2022 12:1 6 AM CDT Respiratory Rule-Out 09/06/2024 09/06/2024 025 12:16 AM GRASS FARM LABORER documented as of this encounter Care Teams Supervisor Pipeline Maintenance Relationship Specialty Start Date End Date Gagan Mcginnis MD [address] [place] [address] PCP - General Family Medicine 06/12/21 Gagan Mcginnis MD [address] [place] [address] Family Medicine 06/12/21 documented as of this encounter
--- OUTSIDE RECORDS SUMMARY | 2024-09-28 09:47 | XMS_ITS | Encounter Summary ---
Author Organization [facility] Address [address] [place] [address] Phone Care Team Providers Care Spectrograph Operator Name Role Phone Gagan Mcginnis MD Primary Care Provider [phone] Gagan Mcginnis MD Unavailable [phone] Encounter Details Date Type Department Care Team (Late st Contact Info) Description 09/06/2024 Lab Requisition [facility] Laboratory Services 1 [place] [phone] Gagan Mcginnis MD [address] [place] [address] [address] [place] [address] Contact with and (suspected) exposure to unspecified [...] Procedure Name Priority Date/Time Associated Diagnosis Comments RSV,SARS-COV-2,INF LUENZA A&B BY PCR Routine 09/06/2024 6:37 AM UNDERCOVER OPERATOR Contact with and (suspected) exposure to unspecified communicable disease Acute cough documented in this encounter Results * RSV,SARS-COV-2,INFLUENZA A&B BY PCR (09/06/2024 6:37 AM UNDERCOVER OPERATOR) FLU A Negative Negative, Error 09/06/2024 11:06 AM UNDERCOVER OPERATOR [facility] FLU B Negative Negative 09/06/2024 11:06 AM UNDERCOVER OPERATOR [facility] RESP SYNC VIRUS Negative Negative 11:06 AM UNDERCOVER OPERATOR [facility] SARSCOV2 NOT DETECTED (Reference Range for this test is Not Detected) 09/06/2024 11:06 AM UNDERCOVER OPERATOR [facility] Comment:This test was perfor med by a Reverse Graphic Specialist PCR Method. Swab Non-Phlebotomy Collection / Unknown 09/06/2024 6:37 AM UNDERCOVER OPERATOR 09/06/2024 8:01 AM UNDERCOVER OPERATOR Gagan Mcginnis MD MICROBIOLOGY - GENERAL ORDERAB LES Final Result [facility] #[address] [place] [address] documented in this encounter Visit Diagnoses Diagnosis Contact with and (suspected) exposure to unspecified communicable disease Acute cough documented in this encounter Additional Health Concerns Infection Onset Date Last Indicated Resolved Time Respiratory Rule-Out 09/06/2024 09/06/2024 025 12:16 AM UNDERCOVER OPERATOR documented as of this encounter Care Teams Spectrograph Operator Relationship Specialty Start Date End Date Gagan Mcginnis MD [address] [place] [address] [place] [address] PCP - General Family Medicine 06/12/21 Gagan Mcginnis MD [address] [place] [address] [place] [address] Family Medicine 06/12/21 documented as of this encounter
--- OUTSIDE RECORDS SUMMARY | 2024-09-28 09:47 | XMS_ITS | Encounter Summary ---
Author Organization [facility] Address [address] [place] [address] Phone Care Team Providers Care Forming Department Supervisor Name Role Phone Gagan Mcginnis MD Primary Care Provider [phone] Gagan Mcginnis MD Unavailable [phone] Encounter Details Date Type Department Care Team (Late st Contact Info) Description 09/17/2022 Lab Requisition [facility] Laboratory Services 1 [place] [phone] Gagan Mcginnis MD [address] [place] [address] [address] Encounter for screening for COVID-19 Social History [...] Associated Diagnosis Comments SARS-COV-2 BY MOLECULAR Routine 09/17/2022 7:54 AM CUSTOMER ADVISOR SPECIALIST Encounter for screening for COVID-19 documented in this encounter Results * SARS-COV-2 BY MOLECULAR (09/17/2022 7:54 AM CUSTOMER ADVISOR SPECIALIST) SARSCOV2 NOT DETECTED (Referen ce Range for this test is Not Detected ) [facility] THERMOFISHER FAST DX 09/17/2022 8:07 PM CUSTOMER ADVISOR SPECIALIST [facility] Comment:This test was perfor med by a RT-PCR method. Other COVID 19 Collection / Unknown 09/17/2022 7:54 AM CUSTOMER ADVISOR SPECIALIST 09/17/2022 9:54 AM CUSTOMER ADVISOR SPECIALIST Narrative [facility] - 09/17/2022 8:07 PM CUSTOMER ADVISOR SPECIALIST Authorized Fact Sheets about this test for providers and patients are available at: https://www.fda.gov/medical-devices/thezsfbfd-lkbfzurawk-iiftuny-devices/emergen -us e-authorizations us Gagan Mcginnis MD MICROBIOLOGY - GENERAL ORDERAB LES Final Result [facility] [address] [place] [address], documented in this encounter Visit Diagnoses Diagnosis Encounter for screening for COVID-19 documented in this encounter Additional Health Concerns Infection Onset Date Last Indicated Resolved Time COVID - 19 07/30/2022 10/15/2022 10/25/2022 12:1 6 AM CDT Respiratory Rule-Out 09/06/2024 09/06/2024 025 12:16 AM CUSTOMER ADVISOR SPECIALIST documented as of this encounter Care Teams Forming Department Supervisor Relationship Specialty Start Date End Date Gagan Mcginnis MD [address] [place] [address] [place] [address] PCP - General Family Medicine 06/12/21 Gagan Mcginnis MD [address] [place] [address] [place] [address] Family Medicine 06/12/21 documented as of this encounter
--- OUTSIDE RECORDS SUMMARY | 2024-09-28 09:47 | XMS_ITS | Encounter Summary ---
Author Organization [facility] Address [address] [place] [address] Phone Care Team Providers Care Svp Monetization Name Role Phone Gagan Mcginnis MD Primary Care Provider [phone] Gagan Mcginnis MD Unavailable [phone] Encounter Details Date Type Department Care Team (Late st Contact Info) Description 07/30/2022 Lab Requisition [facility] Laboratory Services 1 [place] [phone] Gagan Mcginnis MD [address] [place] [address] [address] Encounter for screening for COVID-19 Social History [...] Associated Diagnosis Comments SARS-COV-2 BY MOLECULAR Routine 07/30/2022 7:21 AM HOSPITALIST PROGRAM DIRECTOR Encounter for screening for COVID-19 documented in this encounter Results * SARS-COV-2 BY MOLECULAR (07/30/2022 7:21 AM HOSPITALIST PROGRAM DIRECTOR) SARSCOV2 NOT DETECTED (Referen ce Range for this test is Not Detected ) [facility] THERMOFISHER FAST DX 07/31/2022 12:33 AM HOSPITALIST PROGRAM DIRECTOR [facility] Comment:This test was perfor med by a RT-PCR method. Other Non-Phlebotomy Collection / Unknown 07/30/2022 7:21 AM HOSPITALIST PROGRAM DIRECTOR 07/30/2022 1:01 PM HOSPITALIST PROGRAM DIRECTOR Narrative [facility] - 07/31/2022 12:33 AM HOSPITALIST PROGRAM DIRECTOR Authorized Fact Sheets about this test for providers and patients are available at: https://www.fda.gov/medical-devices/jwxhvotyj-quwniofkme-gmigvag-devices/emergen cy-us e-authorizations us Gagan Mcginnis MD MICROBIOLOGY - GENERAL ORDERAB LES Final Result [facility] [address] [place] [address], documented in this encounter Visit Diagnoses Diagnosis Encounter for screening for COVID-19 documented in this encounter Additional Health Concerns Infection Onset Date Last Indicated Resolved Time COVID - 19 07/30/2022 10/15/2022 10/25/2022 12:1 6 AM CDT Respiratory Rule-Out 09/06/2024 09/06/2024 025 12:16 AM HOSPITALIST PROGRAM DIRECTOR documented as of this encounter Care Teams Svp Monetization Relationship Specialty Start Date End Date Gagan Mcginnis MD [address] [place] [address] [place] [address] PCP - General Family Medicine 06/12/21 Gagan Mcginnis MD [address] [place] [address] [place] [address] Family Medicine 06/12/21 documented as of this encounter
--- OUTSIDE RECORDS SUMMARY | 2024-09-28 09:47 | XMS_ITS | Encounter Summary ---
Author Organization [facility] Address [address] [place] [address] Phone Care Team Providers Care Wrapper Rewinder Name Role Phone Gagan Mcginnis MD Primary Care Provider [phone] Gagan Mcginnis MD Unavailable [phone] Encounter Details Date Type Department Care Team (Late st Contact Info) Description 07/17/2021 [facility] 1 [place] [phone] Gagan Mcginnis MD [address] [place] [address] [id number] Encounter for screening for COVID-19 Social History [...] Associated Diagnosis Comments SARS-COV-2 BY MOLECULAR Routine 07/17/2021 7:41 AM VICE PRESIDENT FIXED INCOME Encounter for screening for COVID-19 documented in this encounter Results * SARS-COV-2 BY MOLECULAR (07/17/2021 7:41 AM VICE PRESIDENT FIXED INCOME) SARSCOV2 NOT DETECTED (Referen ce Range for this test is Not Detected ) [facility] THERMOFISHER FAST DX 07/18/2021 6:00 PM VICE PRESIDENT FIXED INCOME [facility] Comment:This test was perfor med by a RT-PCR method. Other No Phlebotomy Charged / Unknown 07/17/2021 7:41 AM VICE PRESIDENT FIXED INCOME 07/17/2021 11:52 AM VICE PRESIDENT FIXED INCOME Narrative [facility] - 07/18/2021 6:00 PM VICE PRESIDENT FIXED INCOME Authorized Fact Sheets about this test for providers and patients are available at: https://www.fda.gov/medical-devices/zjfkisilt-blixboulhj-qrvzfsx-devices/emergen cy-us e-authorizations Gagan Mcginnis MD MICROBIOLOGY - GENERAL ORDERAB LES Final Result [facility] [address] [place] [address], documented in this encounter Visit Diagnoses Diagnosis Encounter for screening for COVID-19 documented in this encounter Additional Health Concerns Infection Onset Date Last Indicated Resolved Time COVID - 19 04/24/2021 08/14/2021 08/16/2021 6:12 AM VICE PRESIDENT FIXED INCOME COVID - 19 07/17/2021 07/31/2021 08/06/2021 12:1 6 AM VICE PRESIDENT FIXED INCOME COVID - 19 Confirmed 08/14/2021 08/14/2021 022 12:17 AM VICE PRESIDENT FIXED INCOME COVID - 19 09/11/2021 09/11/2021 10/01/2021 12:1 6 AM VICE PRESIDENT FIXED INCOME COVID - 19 11/13/2021 06/11/2022 06/21/2022 12:1 6 AM VICE PRESIDENT FIXED INCOME COVID - 19 07/30/2022 10/15/2022 10/25/2022 12:1 6 AM CDT Respiratory Rule-Out 09/06/2024 09/06/2024 025 12:16 AM VICE PRESIDENT FIXED INCOME documented as of this encounter Care Teams Wrapper Rewinder Relationship Specialty Start Date End Date Gagan Mcginnis MD [address] [place] [address] PCP - General Family Medicine 06/12/21 Gagan Mcginnis MD [address] [place] [address] Family Medicine 06/12/21 documented as of this encounter
--- OUTSIDE RECORDS SUMMARY | 2024-09-28 09:47 | XMS_ITS | Encounter Summary ---
Author Organization [facility] Address [address] [place] [address] Phone Care Team Providers Care Student Worker Name Role Phone Gagan Mcginnis MD Primary Care Provider [phone] Gagan Mcginnis MD Unavailable [phone] Encounter Details Date Type Department Care Team (Late st Contact Info) Description 11/13/2021 Lab Requisition [facility] Laboratory Services 1 [place] [phone] Gagan Mcginnis MD [address] [place] [address] [address] Encounter for screening for COVID-19 Social History [...] Associated Diagnosis Comments SARS-COV-2 BY MOLECULAR Routine 11/13/2021 7:21 AM CDT Encounter for screening for COVID-19 documented in this encounter Results * SARS-COV-2 BY MOLECULAR (11/13/2021 7:21 AM CDT) SARSCOV2 NOT DETECTED (Referen ce Range for this test is Not Detected ) [facility] THERMOFISHER FAST DX 11/14/2021 6:24 AM CDT [facility] Comment:This test was perfor med by a RT-PCR method. Other Non-Phlebotomy Collection / Unknown 11/13/2021 7:21 AM CDT 11/13/2021 11:26 AM CDT Narrative [facility] - 11/14/2021 6:24 AM CDT Authorized Fact Sheets about this test for providers and patients are available at: https://www.fda.gov/medical-devices/mvfwehmia-higuqtvpfn-hvangrr-devices/emergen -us e-authorizations us Gagan Mcginnis MD MICROBIOLOGY - GENERAL ORDERAB LES Final Result [facility] [address] [place] [address], documented in this encounter Visit Diagnoses Diagnosis Encounter for screening for COVID-19 documented in this encounter Additional Health Concerns Infection Onset Date Last Indicated Resolved Time COVID - 19 11/13/2021 06/11/2022 06/21/2022 12:1 6 AM AUDIT LEAD COVID - 19 07/30/2022 10/15/2022 10/25/2022 12:1 6 AM CDT Respiratory Rule-Out 09/06/2024 09/06/2024 025 12:16 AM AUDIT LEAD documented as of this encounter Care Teams Student Worker Relationship Specialty Start Date End Date Gagan Mcginnis MD [address] [place] [address] [address] [place] [address] PCP - General Family Medicine 06/12/21 Gagan Mcginnis MD [address] [facility] [address] [place] [address] Family Medicine 06/12/21 documented as of this encounter
--- OUTSIDE RECORDS SUMMARY | 2024-09-28 09:47 | XMS_ITS | Encounter Summary ---
Author Organization [facility] Address [address] [place] [address] Phone Care Team Providers Care Financial Analysis Consultant Name Role Phone Gagan Mcginnis MD Primary Care Provider [phone] Gagan Mcginnis MD Unavailable [phone] Encounter Details Date Type Department Care Team (Late st Contact Info) Description 08/14/2021 Lab Requisition [facility] Laboratory Services 1 [place] [phone] Gagan Mcginnis MD [address] [place] [address] [address] [place] [address] Social History Tobacco Use Types Packs/Day Years [...] Associated Diagnosis Comments SARS-COV-2 BY MOLECULAR Routine 08/14/2021 8:30 AM ROUGH PATCHER documented in this encounter Results * (ABNORMAL) SARS-COV-2 BY MOLECULAR (08/14/2021 8:30 AM ROUGH PATCHER) SARSCOV2 DETECTED( A) (Referenc e Range for this test is Not Detected) [facility] THERMOFISHER FAST DX 08/16/2021 6:12 AM ROUGH PATCHER [facility] Comment:This test was perfor med by a RT-PCR method. Other Non-Phlebotomy Collection / Unknown 08/14/2021 8:30 AM ROUGH PATCHER 08/14/2021 11:01 AM ROUGH PATCHER Narrative [facility] - 08/16/2021 6:12 AM ROUGH PATCHER Authorized Fact Sheets about this test for providers and patients are available at: https://www.fda.gov/medical-devices/yvdxugrpu-upavsyyidv-hcqwpeq-devices/emergen -us e-authorizations us Gagan Mcginnis MD MICROBIOLOGY - GENERAL ORDERAB LES Final Result [facility] [address] [place] [address], documented in this encounter Visit Diagnoses Not on filedocumented in this encounter Additional Health Concerns Infection Onset Date Last Indicated Resolved Time COVID - 19 04/24/2021 08/14/2021 08/16/2021 6:12 AM ROUGH PATCHER COVID - 19 Confirmed 08/14/2021 08/14/2021 022 12:17 AM ROUGH PATCHER COVID - 19 09/11/2021 09/11/2021 10/01/2021 12:1 6 AM ROUGH PATCHER COVID - 19 11/13/2021 06/11/2022 06/21/2022 12:1 6 AM ROUGH PATCHER COVID - 19 07/30/2022 10/15/2022 10/25/2022 12:1 6 AM CDT Respiratory Rule-Out 09/06/2024 09/06/2024 025 12:16 AM ROUGH PATCHER documented as of this encounter Care Teams Financial Analysis Consultant Relationship Specialty Start Date End Date Gagan Mcginnis MD [address] [facility] [place] [address] PCP - General Family Medicine 06/12/21 Gagan Mcginnis MD [address] [facility] [place] [address] Family Medicine 06/12/21 documented as of this encounter
--- OUTSIDE RECORDS SUMMARY | 2024-09-28 09:47 | XMS_ITS | Encounter Summary ---
Author Organization [facility] Address [address] [place] [address] Phone Care Team Providers Care Band Splicer Name Role Phone Gagan Mcginnis MD Primary Care Provider [phone] Gagan Mcginnis MD Unavailable [phone] Encounter Details Date Type Department Care Team (Late st Contact Info) Description 05/28/2022 Lab Requisition [facility] Laboratory Services 1 [place] [phone] Gaagn Mcginnis MD [address] [place] [address] [address] Encounter for screening for COVID-19 Social History [...] Associated Diagnosis Comments SARS-COV-2 BY MOLECULAR Routine 05/28/2022 7:32 AM CDT Encounter for screening for COVID-19 documented in this encounter Results * SARS-COV-2 BY MOLECULAR (05/28/2022 7:32 AM CDT) SARSCOV2 NOT DETECTED (Referen ce Range for this test is Not Detected ) [facility] THERMOFISHER FAST DX 05/29/2022 9:53 AM CDT [facility] Comment:This test was perfor med by a RT-PCR method. Other Non-Phlebotomy Collection / Unknown 05/28/2022 7:32 AM CDT 05/28/2022 12:17 PM CDT Narrative [facility] - 05/29/2022 9:53 AM CDT Authorized Fact Sheets about this test for providers and patients are available at: https://www.fda.gov/medical-devices/bzeromszy-knwbnrmnkz-djylruz-devices/emergen -us e-authorizations us Gagan Mcginnis MD MICROBIOLOGY - GENERAL ORDERAB LES Final Result [facility] [address] [place] [address], documented in this encounter Visit Diagnoses Diagnosis Encounter for screening for COVID-19 documented in this encounter Additional Health Concerns Infection Onset Date Last Indicated Resolved Time COVID - 19 11/13/2021 06/11/2022 06/21/2022 12:1 6 AM ICU SPECIALIST COVID - 19 07/30/2022 10/15/2022 10/25/2022 12:1 6 AM CDT Respiratory Rule-Out 09/06/2024 09/06/2024 025 12:16 AM ICU SPECIALIST documented as of this encounter Care Teams Band Splicer Relationship Specialty Start Date End Date Gagan Mcginnis MD [address] [place] [address] [address] [place] [address] PCP - General Family Medicine 06/12/21 Gagan Mcginnis MD [address] [facility] [address] [place] [address] Family Medicine 06/12/21 documented as of this encounter
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
--- OUTSIDE RECORDS SUMMARY | 2024-09-28 09:47 | XMS_ITS | Encounter Summary ---
Author Organization [facility] Address [address] [place] [address] Phone Care Team Providers Care Armature Inspector Name Role Phone Gagan Mcginnis MD Primary Care Provider [phone] Gagan Mcginnis MD Unavailable [phone] Encounter Details Date Type Department Care Team (Late st Contact Info) Description 10/15/2022 Lab Requisition [facility] [address] [place] [id number] Gagan Mcginnis MD [address] [place] [address] [address] Encounter for screening for COVID-19 Social History [...] Associated Diagnosis Comments SARS-COV-2 BY MOLECULAR Routine 10/15/2022 7:35 AM CDT Encounter for screening for COVID-19 documented in this encounter Results * SARS-COV-2 BY MOLECULAR (10/15/2022 7:35 AM CDT) SARSCOV2 NOT DETECTED (Referen ce Range for this test is Not Detected ) [facility] THERMOFISHER FAST DX 10/15/2022 5:01 PM CDT [facility] Comment:This test was perfor med by a RT-PCR method. Other Non-Phlebotomy Collection / Unknown 10/15/2022 7:35 AM CDT 10/15/2022 9:50 AM CDT Narrative [facility] - 10/15/2022 5:01 PM CDT Authorized Fact Sheets about this test for providers and patients are available at: https://www.fda.gov/medical-devices/tmrrloqmd-fpflnadtkj-kvmvldy-devices/emergen -us e-authorizations us Gagan Mcginnis MD MICROBIOLOGY - GENERAL ORDERAB LES Final Result [facility] [address] [place] [address], documented in this encounter Visit Diagnoses Diagnosis Encounter for screening for COVID-19 documented in this encounter Additional Health Concerns Infection Onset Date Last Indicated Resolved Time COVID - 19 07/30/2022 10/15/2022 10/25/2022 12:1 6 AM CDT Respiratory Rule-Out 09/06/2024 09/06/2024 025 12:16 AM ROD PILER documented as of this encounter Care Teams Armature Inspector Relationship Specialty Start Date End Date Gagan Mcginnis MD [address] [place] [address] [place] [address] PCP - General Family Medicine 06/12/21 Gagan Mcginnis MD [address] [place] [address] [place] [address] Family Medicine 06/12/21 documented as of this encounter
--- OUTSIDE RECORDS SUMMARY | 2024-09-28 09:47 | XMS_ITS | Encounter Summary ---
Author Organization [facility] Address [address] [place] [address] Phone Care Team Providers Care Senior Talent Management Consultant Name Role Phone Gagan Mcginnis MD Primary Care Provider [phone] Gagan Mcginnis MD Unavailable [phone] Encounter Details Date Type Department Care Team (Late st Contact Info) Description 08/07/2021 [facility] [place] [phone] Gagan Mcginnis MD [address] [place] [address] [address] Social History Tobacco Use Types Packs/Day Years [...] Associated Diagnosis Comments SARS-COV-2 BY MOLECULAR Routine 08/07/2021 7:37 AM TIE CARRIER documented in this encounter Results * SARS-COV-2 BY MOLECULAR (08/07/2021 7:37 AM TIE CARRIER) SARSCOV2 NOT DETECTED (Referen ce Range for this test is Not Detected ) [facility] THERMOFISHER FAST DX 08/09/2021 7:20 PM TIE CARRIER [facility] Comment:This test was perfor med by a RT-PCR method. Other Non-Phlebotomy Collection / Unknown 08/07/2021 7:37 AM TIE CARRIER 08/07/2021 11:49 AM TIE CARRIER Narrative [facility] - 08/09/2021 7:20 PM TIE CARRIER Authorized Fact Sheets about this test for providers and patients are available at: https://www.fda.gov/medical-devices/rnendzcpo-evmgipidrr-zvbwhmx-devices/emergen cy-us e-authorizations us Gagan Mcginnis MD MICROBIOLOGY - GENERAL ORDERAB LES Final Result [facility] [address] [place] [address], [place] documented in this encounter Visit Diagnoses Not on filedocumented in this encounter Additional Health Concerns Infection Onset Date Last Indicated Resolved Time COVID - 19 04/24/2021 08/14/2021 08/16/2021 6:12 AM TIE CARRIER COVID - 19 Confirmed 08/14/2021 08/14/2021 022 12:17 AM TIE CARRIER COVID - 19 09/11/2021 09/11/2021 10/01/2021 12:1 6 AM TIE CARRIER COVID - 19 11/13/2021 06/11/2022 06/21/2022 12:1 6 AM TIE CARRIER COVID - 19 07/30/2022 10/15/2022 10/25/2022 12:1 6 AM CDT Respiratory Rule-Out 09/06/2024 09/06/2024 025 12:16 AM TIE CARRIER documented as of this encounter Care Teams Senior Talent Management Consultant Relationship Specialty Start Date End Date Gagan Mcginnis MD [address] [facility] [place] [address] PCP - General Family Medicine 06/12/21 Gagan Mcginnis MD [address] [facility] [address] Family Medicine 06/12/21 documented as of this encounter
--- OUTSIDE RECORDS SUMMARY | 2024-09-28 09:47 | XMS_ITS | Encounter Summary ---
Author Organization [facility] Address [address] [place] [address] Phone Care Team Providers Care Ship'S Engineer Name Role Phone Gagan Mcginnis MD Primary Care Provider [phone] Gagan Mcginnis MD Unavailable [phone] Encounter Details Date Type Department Care Team (Late st Contact Info) Description 08/06/2022 Lab Requisition [facility] 1 [place] [phone] Gagan Mcginnis MD [address] [place] [address] [address] Encounter for screening for COVID-19 Social History [...] Associated Diagnosis Comments SARS-COV-2 BY MOLECULAR Routine 08/06/2022 7:16 AM ATG ARCHITECT Encounter for screening for COVID-19 documented in this encounter Results * SARS-COV-2 BY MOLECULAR (08/06/2022 7:16 AM ATG ARCHITECT) SARSCOV2 NOT DETECTED (Referen ce Range for this test is Not Detected ) [facility] THERMOFISHER FAST DX 08/06/2022 7:54 PM ATG ARCHITECT [facility] Comment:This test was perfor med by a RT-PCR method. Other COVID 19 Collection / Unknown 08/06/2022 7:16 AM ATG ARCHITECT 08/06/2022 9:54 AM ATG ARCHITECT Narrative [facility] - 08/06/2022 7:54 PM ATG ARCHITECT Authorized Fact Sheets about this test for providers and patients are available at: https://www.fda.gov/medical-devices/yaaqkuaxi-ufglrefjnj-ydwnsmp-devices/emergen -us e-authorizations us Gagan Mcginnis MD MICROBIOLOGY - GENERAL ORDERAB LES Final Result [facility] [address] [place] [address], documented in this encounter Visit Diagnoses Diagnosis Encounter for screening for COVID-19 documented in this encounter Additional Health Concerns Infection Onset Date Last Indicated Resolved Time COVID - 19 07/30/2022 10/15/2022 10/25/2022 12:1 6 AM CDT Respiratory Rule-Out 09/06/2024 09/06/2024 025 12:16 AM ATG ARCHITECT documented as of this encounter Care Teams Ship'S Engineer Relationship Specialty Start Date End Date Gagan Mcginnis MD [address] [place] [address] [place] [address] PCP - General Family Medicine 06/12/21 Gagan Mcginnis MD [address] [place] [address] [place] [address] Family Medicine 06/12/21 documented as of this encounter
--- OUTSIDE RECORDS SUMMARY | 2024-09-28 09:47 | XMS_ITS | Encounter Summary ---
Author Organization [facility] Address [address] [place] [address] Phone Care Team Providers Care Senior Validation Engineer Name Role Phone Gagan Mcginnis MD Primary Care Provider [phone] Gagan Mcginnis MD Unavailable [phone] Encounter Details Date Type Department Care Team (Late st Contact Info) Description 06/11/2022 Lab Requisition [facility] 1 [place] [id number] Gagan Mcginnis MD [address] [place] [address] [address] Encounter for screening for COVID-19 Social History [...] Associated Diagnosis Comments SARS-COV-2 BY MOLECULAR Routine 06/11/2022 7:25 AM LAUNDRY PRICING CLERK Encounter for screening for COVID-19 documented in this encounter Results * SARS-COV-2 BY MOLECULAR (06/11/2022 7:25 AM LAUNDRY PRICING CLERK) SARSCOV2 NOT DETECTED (Referen ce Range for this test is Not Detected ) [facility] THERMOFISHER FAST DX 06/12/2022 4:42 AM LAUNDRY PRICING CLERK [facility] Comment:This test was perfor med by a RT-PCR method. Other Non-Phlebotomy Collection / Unknown 06/11/2022 7:25 AM LAUNDRY PRICING CLERK 06/11/2022 11:17 AM LAUNDRY PRICING CLERK [facility]ative [facility] 06/12/2022 4:42 AM LAUNDRY PRICING CLERK Authorized Fact Sheets about this test for providers and patients are available at: https://www.fda.gov/medical-devices/pfluehhlj-uddgzvynml-lnrmggx-devices/emergen cy-us e-authorizations us Gagan Mcginnis MD MICROBIOLOGY - GENERAL ORDERAB LES Final Result [facility] [address] [place] [address], documented in this encounter Visit Diagnoses Diagnosis Encounter for screening for COVID-19 documented in this encounter Additional Health Concerns Infection Onset Date Last Indicated Resolved Time COVID - 19 11/13/2021 06/11/2022 06/21/2022 12:1 6 AM LAUNDRY PRICING CLERK COVID - 19 07/30/2022 10/15/2022 10/25/2022 12:1 6 AM CDT Respiratory Rule-Out 09/06/2024 09/06/2024 025 12:16 AM LAUNDRY PRICING CLERK documented as of this encounter Care Teams Senior Validation Engineer Relationship Specialty Start Date End Date Gagan Mcginnis MD [address] [facility] [address] [place] [address] PCP - General Family Medicine 06/12/21 Gagan Mcginnis MD [address] [place] [address] [address] [place] [address] Family Medicine 06/12/21 documented as of this encounter
--- OUTSIDE RECORDS SUMMARY | 2024-09-28 09:47 | XMS_ITS | Referral Summary ---
[facility] Address [address] [place] [address] Care Team Providers Care Inclined Railway Operator Name Role Phone Gagan Mcginnis MD Primary Care Provider [phone] Allergies No known active allergies Medications ibuprofen [...] Seizure 08/26/2012 Overview (11/07/2016): Seizure / Convulsions Social History Tobacco Use Types Packs/Day Years Used Date Smoking Tobacco: Never Alcohol Use Standard Drinks/Week Comments No 0 (1 standard drink = 0.6 oz pur e alcohol) Sex and Gender Information Value Date Recorded Sex Assigned at Not on file Legal Sex Male 2:37 AM PUTTY AND CAULKING SUPERVISOR Gender Identity Not on file Sexual Orientation Not on file Last Filed Vital Signs Vital Sign Reading Time Taken Comments Blood Pressure 123/82 02/28/2019 10:16 AM CDT Pulse 96 02/28/2019 10:16 AM CDT Temperature - - Respiratory Rate - - Oxygen Saturation 100% 08/25/2016 10:49 AM PUTTY AND CAULKING SUPERVISOR Inhaled Oxygen Concentration - - Weight 49.6 kg (109 lb 6.4 oz) 02/28/2019 10:16 AM CDT Height 172.7 cm (5' 8 ) 02/28/2019 10:16 AM CDT Body Mass Index 16.63 02/28/2019 10:16 AM CDT Plan of Treatment Not on file Insurance [facility] [place] [address] MEDICARE [facility] Address: [facility] [address] [place] [address] Care Teams Inclined Railway Operator Relationship Specialty Start Date End Date Gagan Mcginnis MD PCP - General 02/22/16
--- OUTSIDE RECORDS SUMMARY | 2024-09-28 09:47 | XMS_ITS | Encounter Summary ---
Author Organization [facility] Address [address] [place] [address] Phone Care Team Providers Care Computer Operations Manager Name Role Phone Gagan Mcginnis MD Primary Care Provider [phone] Gagan Mcginnis MD Unavailable [phone] Encounter Details Date Type Department Care Team (Late st Contact Info) Description 05/21/2022 Lab Requisition [facility] Laboratory Services 1 [place] [phone] Gagan Mcginnis MD [address] [place] [address] [address] Encounter for screening for COVID-19 Social History [...] Associated Diagnosis Comments SARS-COV-2 BY MOLECULAR Routine 05/21/2022 7:38 AM CDT Encounter for screening for COVID-19 documented in this encounter Results * SARS-COV-2 BY MOLECULAR (05/21/2022 7:38 AM CDT) SARSCOV2 NOT DETECTED (Referen ce Range for this test is Not Detected ) [facility] THERMOFISHER FAST DX 05/21/2022 11:59 PM CDT [facility] Comment:This test was perfor med by a RT-PCR method. Other Non-Phlebotomy Collection / Unknown 05/21/2022 7:38 AM CDT 05/21/2022 11:05 AM CDT Narrative [facility] - 05/21/2022 11:59 PM CDT Authorized Fact Sheets about this test for providers and patients are available at: https://www.fda.gov/medical-devices/ldrxbcimu-nqdmikyrul-evzzpiu-devices/emergen -us e-authorizations us Gagan Mcginnis MD MICROBIOLOGY - GENERAL ORDERAB LES Final Result [facility] [address] [place] [address], documented in this encounter Visit Diagnoses Diagnosis Encounter for screening for COVID-19 documented in this encounter Additional Health Concerns Infection Onset Date Last Indicated Resolved Time COVID - 19 11/13/2021 06/11/2022 06/21/2022 12:1 6 AM ASSOCIATE PROFESSOR OF AUTOMATION COVID - 19 07/30/2022 10/15/2022 10/25/2022 12:1 6 AM CDT Respiratory Rule-Out 09/06/2024 09/06/2024 025 12:16 AM ASSOCIATE PROFESSOR OF AUTOMATION documented as of this encounter Care Teams Computer Operations Manager Relationship Specialty Start Date End Date Gagan Mcginnis MD [address] [place] [address] [address] [place] [address] PCP - General Family Medicine 06/12/21 Gagan Mcginnis MD [address] [facility] [address] [place] [address] Family Medicine 06/12/21 documented as of this encounter
--- OUTSIDE RECORDS SUMMARY | 2024-09-28 09:47 | XMS_ITS | Encounter Summary ---
Author Organization [facility] Address [address] [place] [address] Phone Care Team Providers Care Parts Assembler Name Role Phone Gagan Mcginnis MD Primary Care Provider [phone] Gagan Mcginnis MD Unavailable [phone] Encounter Details Date Type Department Care Team (Late st Contact Info) Description 01/29/2022 Lab Requisition [facility] Laboratory Services 1 [place] [phone] Gagan Mcginnis MD [address] [place] [address] [address] Encounter for screening for COVID-19 Social History [...] Associated Diagnosis Comments SARS-COV-2 BY MOLECULAR Routine 01/29/2022 7:21 AM CDT Encounter for screening for COVID-19 documented in this encounter Results * SARS-COV-2 BY MOLECULAR (01/29/2022 7:21 AM CDT) SARSCOV2 NOT DETECTED (Referen ce Range for this test is Not Detected ) [facility] THERMOFISHER FAST DX 01/29/2022 11:45 PM CDT [facility] Comment:This test was perfor med by a RT-PCR method. Other Non-Phlebotomy Collection / Unknown 01/29/2022 7:21 AM CDT 01/29/2022 9:41 AM CDT Narrative [facility] - 01/29/2022 11:45 PM CDT Authorized Fact Sheets about this test for providers and patients are available at: https://www.fda.gov/medical-devices/adwmgrola-pmvycndjeg-yamzpuv-devices/emergen -us e-authorizations us Gagan Mcginnis MD MICROBIOLOGY - GENERAL ORDERAB LES Final Result [facility] [address] [place] [address], documented in this encounter Visit Diagnoses Diagnosis Encounter for screening for COVID-19 documented in this encounter Additional Health Concerns Infection Onset Date Last Indicated Resolved Time COVID - 19 11/13/2021 06/11/2022 06/21/2022 12:1 6 AM ROUGHER MACHINE OPERATOR COVID - 19 07/30/2022 10/15/2022 10/25/2022 12:1 6 AM CDT Respiratory Rule-Out 09/06/2024 09/06/2024 025 12:16 AM ROUGHER MACHINE OPERATOR documented as of this encounter Care Teams Parts Assembler Relationship Specialty Start Date End Date Gagan Mcginnis MD [address] [place] [address] [address] [place] [address] PCP - General Family Medicine 06/12/21 Gagan Mcginnis MD 4 [facility] [address] [place] [address] Family Medicine 06/12/21 documented as of this encounter
--- OUTSIDE RECORDS SUMMARY | 2024-09-28 09:47 | XMS_ITS | Encounter Summary ---
Author Organization [facility] Address [address] [place] [address] Phone Care Team Providers Care Net Trainer Name Role Phone Gagan Mcginnis MD Primary Care Provider Gagan Mcginnis MD Unavailable [phone] Encounter Details Date Type Department Care Team (Late st Contact Info) Description 06/04/2022 Lab Requisition [facility] Laboratory Services 1 [place] [phone] Gagan Mcginnis MD [address] [place] [address] [address] Encounter for screening for COVID-19 Social History [...] Associated Diagnosis Comments SARS-COV-2 BY MOLECULAR Routine 06/04/2022 7:31 AM CDT Encounter for screening for COVID-19 documented in this encounter Results * SARS-COV-2 BY MOLECULAR (06/04/2022 7:31 AM CDT) SARSCOV2 NOT DETECTED (Referen ce Range for this test is Not Detected ) [facility] THERMOFISHER FAST DX 06/05/2022 12:01 AM CDT [facility] Comment:This test was perfor med by a RT-PCR method. Other Non-Phlebotomy Collection / Unknown 06/04/2022 7:31 AM CDT 06/04/2022 12:57 PM CDT Narrative [facility] - 06/05/2022 12:01 AM CDT Authorized Fact Sheets about this test for providers and patients are available at: https://www.fda.gov/medical-devices/vetyiqmsg-faufovjnrj-pmmyfof-devices/emergen -us e-authorizations us Gagan Mcginnis MD MICROBIOLOGY - GENERAL ORDERAB LES Final Result [facility] [address] [place] [address], documented in this encounter Visit Diagnoses Diagnosis Encounter for screening for COVID-19 documented in this encounter Additional Health Concerns Infection Onset Date Last Indicated Resolved Time COVID - 19 11/13/2021 06/11/2022 06/21/2022 12:1 6 AM ELECTRICAL HELPER COVID - 19 07/30/2022 10/15/2022 10/25/2022 12:1 6 AM CDT Respiratory Rule-Out 09/06/2024 09/06/2024 025 12:16 AM ELECTRICAL HELPER documented as of this encounter Care Teams Net Trainer Relationship Specialty Start Date End Date Gagan Mcginnis MD [address] [place] [address] [address] [place] [address] PCP - General Family Medicine 06/12/21 Gagan Mcginnis MD [address] [facility] [address] [place] [address] Family Medicine 06/12/21 documented as of this encounter
--- OUTSIDE RECORDS SUMMARY | 2024-09-28 09:47 | XMS_ITS | Encounter Summary ---
Author Organization [facility] Address [address] [place] [address] Phone Care Team Providers Care Link Wire Fabric Machine Operator Name Role Phone Gagan Mcginnis MD Primary Care Provider [phone] Gagan Mcginnis MD Unavailable [phone] Encounter Details Date Type Department Care Team (Late st Contact Info) Description 07/10/2021 Lab Requisition [facility] Laboratory Services 1 [place] [phone] Gagan Mcginnis MD [address] [place] [address] [address] Encounter for screening for COVID-19 Social History [...] Associated Diagnosis Comments SARS-COV-2 BY MOLECULAR Routine 07/10/2021 7:37 AM CHAPLAIN RESIDENT Encounter for screening for COVID-19 documented in this encounter Results * SARS-COV-2 BY MOLECULAR (07/10/2021 7:37 AM CHAPLAIN RESIDENT) SARSCOV2 NOT DETECTED (Referen ce Range for this test is Not Detected ) [facility] THERMOFISHER FAST DX 07/11/2021 12:03 PM CHAPLAIN RESIDENT [facility] Comment:This test was perfor med by a RT-PCR method. Other No Phlebotomy Charged / Unknown 07/10/2021 7:37 AM CHAPLAIN RESIDENT 07/10/2021 11:14 AM CHAPLAIN RESIDENT Narrative [facility] - 07/11/2021 12:03 PM CHAPLAIN RESIDENT Authorized Fact Sheets about this test for providers and patients are available at: https://www.fda.gov/medical-devices/tsewkmdzz-mxqwhxyebn-iyhfcag-devices/emergen cy-us e-authorizations us Gagan Mcginnis MD MICROBIOLOGY - GENERAL ORDERAB LES Final Result [facility] [address] [place] [address], documented in this encounter Visit Diagnoses Diagnosis Encounter for screening for COVID-19 documented in this encounter Additional Health Concerns Infection Onset Date Last Indicated Resolved Time COVID - 19 04/24/2021 08/14/2021 08/16/2021 6:12 AM CHAPLAIN RESIDENT COVID - 19 06/12/2021 07/10/2021 07/16/2021 12:1 8 AM CHAPLAIN RESIDENT COVID - 19 07/17/2021 07/31/2021 08/06/2021 12:1 6 AM CHAPLAIN RESIDENT COVID - 19 Confirmed 08/14/2021 08/14/2021 022 12:17 AM CHAPLAIN RESIDENT COVID - 19 09/11/2021 09/11/2021 10/01/2021 12:1 6 AM CHAPLAIN RESIDENT COVID - 19 11/13/2021 06/11/2022 06/21/2022 12:1 6 AM CHAPLAIN RESIDENT COVID - 19 07/30/2022 10/15/2022 10/25/2022 12:1 6 AM CDT Respiratory Rule-Out 09/06/2024 09/06/2024 025 12:16 AM CHAPLAIN RESIDENT documented as of this encounter Care Teams Link Wire Fabric Machine Operator Relationship Specialty Start Date End Date Gagan Mcginnis MD [address] [facility] [address] [place] [address] PCP - General Family Medicine 06/12/21 Gagan Mcginnis MD 4 [facility] [address] [place] [address] Family Medicine 06/12/21 documented as of this encounter
--- OUTSIDE RECORDS SUMMARY | 2024-09-28 09:47 | XMS_ITS | Encounter Summary ---
Author Organization [facility] Address [address] [place] [address] Phone Care Team Providers Care Jockey Valet Name Role Phone Gagan Mcginnis MD Primary Care Provider [phone] Gagan Mcginnis MD Unavailable [phone] Encounter Details Date Type Department Care Team (Late st Contact Info) Description 01/22/2022 Lab Requisition [facility] Laboratory Services 1 [place] [phone] Gagan Mcginnis MD [address] [place] [address] [address] Encounter for screening for COVID-19 Social History [...] Associated Diagnosis Comments SARS-COV-2 BY MOLECULAR Routine 01/22/2022 7:20 AM CDT Encounter for screening for COVID-19 documented in this encounter Results * SARS-COV-2 BY MOLECULAR (01/22/2022 7:20 AM CDT) SARSCOV2 NOT DETECTED (Referen ce Range for this test is Not Detected ) [facility] THERMOFISHER FAST DX 01/22/2022 10:13 PM CDT [facility] Comment:This test was perfor med by a RT-PCR method. Other Non-Phlebotomy Collection / Unknown 01/22/2022 7:20 AM CDT 01/22/2022 9:21 AM CDT Narrative [facility] - 01/22/2022 10:13 PM CDT Authorized Fact Sheets about this test for providers and patients are available at: https://www.fda.gov/medical-devices/klcyorwsh-xhhrwetakw-kgwibhr-devices/emergen -us e-authorizations us Gagan Mcginnis MD MICROBIOLOGY - GENERAL ORDERAB LES Final Result [facility] [address] [place] [address], documented in this encounter Visit Diagnoses Diagnosis Encounter for screening for COVID-19 documented in this encounter Additional Health Concerns Infection Onset Date Last Indicated Resolved Time COVID - 19 11/13/2021 06/11/2022 06/21/2022 12:1 6 AM GLUED WOOD TESTER COVID - 19 07/30/2022 10/15/2022 10/25/2022 12:1 6 AM CDT Respiratory Rule-Out 09/06/2024 09/06/2024 025 12:16 AM GLUED WOOD TESTER documented as of this encounter Care Teams Jockey Valet Relationship Specialty Start Date End Date Gagan Mcginnis MD [address] [place] [address] [address] [place] [address] PCP - General Family Medicine 06/12/21 Gagan Mcginnis MD [address] [facility] [address] [place] [address] Family Medicine 06/12/21 documented as of this encounter
--- OUTSIDE RECORDS SUMMARY | 2024-09-28 09:47 | XMS_ITS | Encounter Summary ---
Author Organization [facility] Address [address] [place] [address] Phone Care Team Providers Care Turkey Picker Name Role Phone Gagan Mcginnis MD Primary Care Provider Gagan Mcginnis MD Unavailable Encounter Details Date Type Department Care Team (Late st Contact Info) Description 11/27/2021 Lab Requisition [facility] Laboratory Services 1 [place] [phone] Gagan Mcginnis MD [address] [place] [address] [address] Encounter for screening for COVID-19 Social History [...] Associated Diagnosis Comments SARS-COV-2 BY MOLECULAR Routine 11/27/2021 7:14 AM CDT Encounter for screening for COVID-19 documented in this encounter Results * SARS-COV-2 BY MOLECULAR (11/27/2021 7:14 AM CDT) SARSCOV2 NOT DETECTED (Referen ce Range for this test is Not Detected ) [facility] THERMOFISHER FAST DX 11/28/2021 11:37 AM CDT [facility] Comment:This test was perfor med by a RT-PCR method. Other Non-Phlebotomy Collection / Unknown 11/27/2021 7:14 AM CDT 11/27/2021 1:39 PM CDT Narrative [facility] - 11/28/2021 11:37 AM CDT Authorized Fact Sheets about this test for providers and patients are available at: https://www.fda.gov/medical-devices/jaqlwtekm-kelyycyjou-pbcmzlx-devices/emergen -us e-authorizations us Gagan Mcginnis MD MICROBIOLOGY - GENERAL ORDERAB LES Final Result [facility] [address] [place] [address], documented in this encounter Visit Diagnoses Diagnosis Encounter for screening for COVID-19 documented in this encounter Additional Health Concerns Infection Onset Date Last Indicated Resolved Time COVID - 19 11/13/2021 06/11/2022 06/21/2022 12:1 6 AM WILDLIFE AND GAME PROTECTOR COVID - 19 07/30/2022 10/15/2022 10/25/2022 12:1 6 AM CDT Respiratory Rule-Out 09/06/2024 09/06/2024 025 12:16 AM WILDLIFE AND GAME PROTECTOR documented as of this encounter Care Teams Turkey Picker Relationship Specialty Start Date End Date Gagan Mcginnis MD [address] [place] [address] [address] [place] [address] PCP - General Family Medicine 06/12/21 Gagan Mcginnis MD [address] [facility] [address] [place] [address] Family Medicine 06/12/21 documented as of this encounter
--- OUTSIDE RECORDS SUMMARY | 2024-09-28 09:47 | XMS_ITS | Encounter Summary ---
Author Organization [facility] Address [address] [place] [address] Phone Care Team Providers Care Tray Drier Operator Name Role Phone Gagan Mcginnis MD Primary Care Provider [phone] Gagan Mcginnis MD Unavailable [phone] Encounter Details Date Type Department Care Team (Late st Contact Info) Description 02/05/2022 Lab Requisition [facility] Laboratory Services 1 [place] [phone] Gagan Mcginnis MD [address] [place] [address] [address] Encounter for screening for COVID-19 Social History [...] Associated Diagnosis Comments SARS-COV-2 BY MOLECULAR Routine 02/05/2022 7:15 AM CDT Encounter for screening for COVID-19 documented in this encounter Results * SARS-COV-2 BY MOLECULAR (02/05/2022 7:15 AM CDT) SARSCOV2 NOT DETECTED (Referen ce Range for this test is Not Detected ) [facility] THERMOFISHER FAST DX 02/06/2022 12:15 AM CDT [facility] Comment:This test was perfor med by a RT-PCR method. Other Non-Phlebotomy Collection / Unknown 02/05/2022 7:15 AM CDT 02/05/2022 11:30 AM CDT Narrative [facility] - 02/06/2022 12:15 AM CDT Authorized Fact Sheets about this test for providers and patients are available at: https://www.fda.gov/medical-devices/iddzripbb-yvoglchzzf-fghfvss-devices/emergen -us e-authorizations us Gagan Mcginnis MD MICROBIOLOGY - GENERAL ORDERAB LES Final Result [facility] [address] [place] [address], documented in this encounter Visit Diagnoses Diagnosis Encounter for screening for COVID-19 documented in this encounter Additional Health Concerns Infection Onset Date Last Indicated Resolved Time COVID - 19 11/13/2021 06/11/2022 06/21/2022 12:1 6 AM FINANCIAL SERVICES AGENT COVID - 19 07/30/2022 10/15/2022 10/25/2022 12:1 6 AM CDT Respiratory Rule-Out 09/06/2024 09/06/2024 025 12:16 AM FINANCIAL SERVICES AGENT documented as of this encounter Care Teams Tray Drier Operator Relationship Specialty Start Date End Date Gagan Mcginnis MD [address] [place] [address] [address] [place] [address] PCP - General Family Medicine 06/12/21 Gagan Mcginnis MD [address] [facility] [address] [place] [address] Family Medicine 06/12/21 documented as of this encounter
--- OUTSIDE RECORDS SUMMARY | 2024-09-28 09:47 | XMS_ITS | Encounter Summary ---
Author Organization [facility] Address [address] [place] [address] Phone Care Team Providers Care Cash Register Repairer Name Role Phone Gagan Mcginnis MD Primary Care Provider Gagan Mcginins MD Unavailable [phone] Encounter Details Date Type Department Care Team (Late st Contact Info) Description 07/31/2021 Lab Requisition [facility] Laboratory Services 1 [place] [phone] Gagan Mcginnis MD [address] [place] [address] [address] Encounter for screening for COVID-19 Social History [...] Associated Diagnosis Comments SARS-COV-2 BY MOLECULAR Routine 07/31/2021 7:30 AM MACHINE BOBBIN WINDER Encounter for screening for COVID-19 documented in this encounter Results * SARS-COV-2 BY MOLECULAR (07/31/2021 7:30 AM MACHINE BOBBIN WINDER) SARSCOV2 NOT DETECTED (Referen ce Range for this test is Not Detected ) [facility] THERMOFISHER FAST DX 08/03/2021 11:18 AM MACHINE BOBBIN WINDER [facility] Comment:This test was perfor med by a RT-PCR method. Other No Phlebotomy Charged / Unknown 07/31/2021 7:30 AM MACHINE BOBBIN WINDER 07/31/2021 10:55 AM MACHINE BOBBIN WINDER Narrative [facility] - 08/03/2021 11:18 AM MACHINE BOBBIN WINDER Authorized Fact Sheets about this test for providers and patients are available at: https://www.fda.gov/medical-devices/nuyuciznb-grdwqkasrx-etsbvqh-devices/emergen -us e-authorizations us Gagan Mcginnis MD MICROBIOLOGY - GENERAL ORDERAB LES Final Result [facility] [address] [place] [address], documented in this encounter Visit Diagnoses Diagnosis Encounter for screening for COVID-19 documented in this encounter Additional Health Concerns Infection Onset Date Last Indicated Resolved Time COVID - 19 04/24/2021 08/14/2021 08/16/2021 6:12 AM MACHINE BOBBIN WINDER COVID - 19 07/17/2021 07/31/2021 08/06/2021 12:1 6 AM MACHINE BOBBIN WINDER COVID - 19 Confirmed 08/14/2021 08/14/2021 022 12:17 AM MACHINE BOBBIN WINDER COVID - 19 09/11/2021 09/11/2021 10/01/2021 12:1 6 AM MACHINE BOBBIN WINDER COVID - 19 11/13/2021 06/11/2022 06/21/2022 12:1 6 AM MACHINE BOBBIN WINDER COVID - 19 07/30/2022 10/15/2022 10/25/2022 12:1 6 AM CDT Respiratory Rule-Out 09/06/2024 09/06/2024 025 12:16 AM MACHINE BOBBIN WINDER documented as of this encounter Care Teams Cash Register Repairer Relationship Specialty Start Date End Date Gagan Mcginnis MD [address] [facility] [place] [address] PCP - General Family Medicine 06/12/21 Gagan Mcginnis MD [address] [place] [address] Family Medicine 06/12/21 documented as of this encounter
--- OUTSIDE RECORDS SUMMARY | 2024-09-28 09:47 | XMS_ITS | Encounter Summary ---
Author Organization [facility] Address [address] [place] [address] Phone Care Team Providers Care Director Professional Services Name Role Phone Gagan Mcginnis MD Primary Care Provider [phone] Gagan Mcginnis MD Primary Care Provider [phone] Gagan Mcginnis MD Unavailable Encounter Details Date Type Department Care Team (Late st Contact Info) Description 04/24/2021 Lab Requisition [facility] Laboratory Services 1 [place] [address] Gagan Mcginnis MD [address] [place] [address] [address] [place] [address] Social History Tobacco Use Types Packs/Day Years [...] Associated Diagnosis Comments SARS-COV-2 BY MOLECULAR Routine 04/24/2021 9:08 AM CDT documented in this encounter Results * SARS-COV-2 BY MOLECULAR (04/24/2021 9:08 AM CDT) SARSCOV2 NOT DETECTED (Referen ce Range for this test is Not Detected ) [facility] THERMOFISHER FAST DX 04/25/2021 8:26 AM CDT [facility] Comment:This test was perfor med by a RT-PCR method. Other No Phlebotomy Charged / Unknown 04/24/2021 9:08 AM CDT 04/24/2021 10:59 AM CDT Narrative [facility] - 04/25/2021 8:26 AM CDT Authorized Fact Sheets about this test for providers and patients are available at: https://www.fda.gov/medical-devices/zueadgbhd-cbshxqwvxu-kpnvgis-devices/emergen -us e-authorizations us Gagan Mcginnis MD MICROBIOLOGY - GENERAL ORDERAB LES Final Result [facility] [address] [place] [address], documented in this encounter Visit Diagnoses Not on filedocumented in this encounter Additional Health Concerns Infection Onset Date Last Indicated Resolved Time COVID - 19 04/24/2021 08/14/2021 08/16/2021 6:12 AM SENSITIZED PAPER TESTER COVID - 19 06/12/2021 07/10/2021 07/16/2021 12:1 8 AM SENSITIZED PAPER TESTER COVID - 19 07/17/2021 07/31/2021 08/06/2021 12:1 6 AM SENSITIZED PAPER TESTER COVID - 19 Confirmed 08/14/2021 08/14/2021 022 12:17 AM SENSITIZED PAPER TESTER COVID - 19 09/11/2021 09/11/2021 10/01/2021 12:1 6 AM SENSITIZED PAPER TESTER COVID - 19 11/13/2021 06/11/2022 06/21/2022 12:1 6 AM SENSITIZED PAPER TESTER COVID - 19 07/30/2022 10/15/2022 10/25/2022 12:1 6 AM CDT Respiratory Rule-Out 09/06/2024 09/06/2024 025 12:16 AM SENSITIZED PAPER TESTER documented as of this encounter Care Teams Director Professional Services Relationship Specialty Start Date End Date Gagan Mcginnis MD [address] [place] [address] [address] [place] [address] PCP - General Family Medicine 08/21/20 06/11/21 Gagan Mcginnis MD [address] [facility] [place] [address] PCP - General [facility] 06/12/21 Gagan Mcginnis MD [address] [facility] [place] [address] Family Medicine 06/12/21 documented as of this encounter
--- OUTSIDE RECORDS SUMMARY | 2024-09-28 09:47 | XMS_ITS | Encounter Summary ---
Author Organization [facility] Address [address] [place] [address] Phone Care Team Providers Care Block Mechanic Name Role Phone Gagan Mcginnis MD Primary Care Provider [phone] Gagan Mcginnis MD Primary Care Provider [phone] Gagan Mcginnis MD Unavailable [phone] Encounter Details Date Type Department Care Team (Late st Contact Info) Description 05/01/2021 Lab Requisition [facility] Laboratory Services 1 [place] [address] Gagan Mcginnis MD [address] [place] [address] [address] [place] [address] Social History Tobacco Use Types Packs/Day Years [...] Associated Diagnosis Comments SARS-COV-2 BY MOLECULAR Routine 05/01/2021 7:45 AM CDT documented in this encounter Results * SARS-COV-2 BY MOLECULAR (05/01/2021 7:45 AM CDT) SARSCOV2 NOT DETECTED (Referen ce Range for this test is Not Detected ) [facility] THERMOFISHER FAST DX 05/02/2021 6:36 AM CDT [facility] Comment:This test was perfor med by a RT-PCR method. Other Non-Phlebotomy Collection / Unknown 05/01/2021 7:45 AM CDT 05/01/2021 10:51 AM CDT Narrative [facility] - 05/02/2021 6:36 AM CDT Authorized Fact Sheets about this test for providers and patients are available at: https://www.fda.gov/medical-devices/bjlfuczzi-nrbptnapit-hfgnzma-devices/emergen -us e-authorizations us Gagan Mcginnis MD MICROBIOLOGY - GENERAL ORDERAB LES Final Result [facility] [address] [place] [address], documented in this encounter Visit Diagnoses Not on filedocumented in this encounter Additional Health Concerns Infection Onset Date Last Indicated Resolved Time COVID - 19 04/24/2021 08/14/2021 08/16/2021 6:12 AM COMPOSITE BOAT BUILDER COVID - 19 06/12/2021 07/10/2021 07/16/2021 12:1 8 AM COMPOSITE BOAT BUILDER COVID - 19 07/17/2021 07/31/2021 08/06/2021 12:1 6 AM COMPOSITE BOAT BUILDER COVID - 19 Confirmed 08/14/2021 08/14/2021 022 12:17 AM COMPOSITE BOAT BUILDER COVID - 19 09/11/2021 09/11/2021 10/01/2021 12:1 6 AM COMPOSITE BOAT BUILDER COVID - 19 11/13/2021 06/11/2022 06/21/2022 12:1 6 AM COMPOSITE BOAT BUILDER COVID - 19 07/30/2022 10/15/2022 10/25/2022 12:1 6 AM CDT Respiratory Rule-Out 09/06/2024 09/06/2024 025 12:16 AM COMPOSITE BOAT BUILDER documented as of this encounter Care Teams Block Mechanic Relationship Specialty Start Date End Date Gagan Mcginnis MD [address] [place] [address] [address] [place] [address] PCP - General Family Medicine 08/21/20 06/11/21 Gagan Mcginnis MD [address] [facility] [place] [address] PCP - General [facility] Medicine 06/12/21 Gagan Mcginnis MD [address] [facility] [place] [address] Family Medicine 06/12/21 documented as of this encounter
--- OUTSIDE RECORDS SUMMARY | 2024-09-28 09:47 | XMS_ITS | Encounter Summary ---
Author Organization [facility] Address [address] [place] [address] Phone Care Team Providers Care Him Coder Name Role Phone Gagan Mcginnis MD Primary Care Provider [phone] Gagan Mcginnis MD Unavailable [phone] Encounter Details Date Type Department Care Team (Late st Contact Info) Description 12/18/2021 Lab Requisition [facility] Laboratory Services 1 [place] [id number] Gagan Mcginnis MD [address] [place] [address] [address] Encounter for screening for COVID-19 Social History [...] Associated Diagnosis Comments SARS-COV-2 BY MOLECULAR Routine 12/18/2021 7:04 AM CDT Encounter for screening for COVID-19 documented in this encounter Results * SARS-COV-2 BY MOLECULAR (12/18/2021 7:04 AM CDT) SARSCOV2 NOT DETECTED (Referen ce Range for this test is Not Detected ) [facility] THERMOFISHER FAST DX 12/19/2021 6:32 PM CDT [facility] Comment:This test was perfor med by a RT-PCR method. Other Non-Phlebotomy Collection / Unknown 12/18/2021 7:04 AM CDT 12/18/2021 11:40 AM CDT Narrative [facility] - 12/19/2021 6:32 PM CDT Authorized Fact Sheets about this test for providers and patients are available at: https://www.fda.gov/medical-devices/ctvuqrtgm-xalngaiuis-sneaddk-devices/emergen -us e-authorizations us Gagan Mcginnis MD MICROBIOLOGY - GENERAL ORDERAB LES Final Result [facility] [address] [place] [address], documented in this encounter Visit Diagnoses Diagnosis Encounter for screening for COVID-19 documented in this encounter Additional Health Concerns Infection Onset Date Last Indicated Resolved Time COVID - 19 11/13/2021 06/11/2022 06/21/2022 12:1 6 AM SWITCHMAN SUPERVISOR COVID - 19 07/30/2022 10/15/2022 10/25/2022 12:1 6 AM CDT Respiratory Rule-Out 09/06/2024 09/06/2024 025 12:16 AM SWITCHMAN SUPERVISOR documented as of this encounter Care Teams Him Coder Relationship Specialty Start Date End Date Gagan Mcginnis MD [address] [place] [address] [address] [place] [address] PCP - General Family Medicine 06/12/21 Gagan Mcginnis MD [address] [facility] [address] [place] [address] Family Medicine 06/12/21 documented as of this encounter
--- OUTSIDE RECORDS SUMMARY | 2024-09-28 09:47 | XMS_ITS | Encounter Summary ---
Author Organization [facility] Address [address] [place] [address] Phone Care Team Providers Care Memorial Designer Name Role Phone Gagan Mcginnis MD Primary Care Provider [phone] Gagan Mcginnis MD Primary Care Provider [phone] Gagan Mcginnis MD Unavailable [phone] Encounter Details Date Type Department Care Team (Late st Contact Info) Description 05/22/2021 Lab Requisition [facility] Laboratory Services 1 [place] [address] Gagan Mcginnis MD [address] [place] [address] [address] [place] [address] Encounter for screening for COVID-19 Social History [...] Associated Diagnosis Comments SARS-COV-2 BY MOLECULAR Routine 05/22/2021 7:21 AM CDT Encounter for screening for COVID-19 documented in this encounter Results * SARS-COV-2 BY MOLECULAR (05/22/2021 7:21 AM CDT) SARSCOV2 NOT DETECTED (Referen ce Range for this test is Not Detected ) [facility] THERMOFISHER FAST DX 05/22/2021 5:44 PM CDT [facility] Comment:This test was perfor med by a RT-PCR method. Other Non-Phlebotomy Collection / Unknown 05/22/2021 7:21 AM CDT 05/22/2021 10:42 AM CDT Narrative [facility] - 05/22/2021 5:44 PM CDT Authorized Fact Sheets about this test for providers and patients are available at: https://www.fda.gov/medical-devices/hcfoqmjcv-teixvvfbph-xovhxlx-devices/emergen cy-us e-authorizations us Gagan Mcginnis MD MICROBIOLOGY - GENERAL ORDERAB LES Final Result [facility] [address] [place] [address], documented in this encounter Visit Diagnoses Diagnosis Encounter for screening for COVID-19 documented in this encounter Additional Health Concerns Infection Onset Date Last Indicated Resolved Time COVID - 19 04/24/2021 08/14/2021 08/16/2021 6:12 AM PAEDODONTIST COVID - 19 06/12/2021 07/10/2021 07/16/2021 12:1 8 AM PAEDODONTIST COVID - 19 07/17/2021 07/31/2021 08/06/2021 12:1 6 AM PAEDODONTIST COVID - 19 Confirmed 08/14/2021 08/14/2021 022 12:17 AM PAEDODONTIST COVID - 19 09/11/2021 09/11/2021 10/01/2021 12:1 6 AM PAEDODONTIST COVID - 19 11/13/2021 06/11/2022 06/21/2022 12:1 6 AM PAEDODONTIST COVID - 19 07/30/2022 10/15/2022 10/25/2022 12:1 6 AM CDT Respiratory Rule-Out 09/06/2024 09/06/2024 025 12:16 AM PAEDODONTIST documented as of this encounter Care Teams Memorial Designer Relationship Specialty Start Date End Date Gagan Mcginnis MD [address] [place] [address] [address] [place] [address] PCP - General Family Medicine 08/21/20 06/11/21 Gagan Mcginnis MD [address] [facility] [place] [address] PCP - General Family Medicine 06/12/21 Gagan Mcginnis MD [address] [facility] [place] [address] Family Medicine 06/12/21 documented as of this encounter
--- OUTSIDE RECORDS SUMMARY | 2024-09-28 09:47 | XMS_ITS | Encounter Summary ---
Author Organization [facility] Address [address] [place] [address] Phone Care Team Providers Care Sandwich Peddler Name Role Phone Gagan Mcginnis MD Primary Care Provider [phone] Gagan Mcginnis MD Unavailable [phone] Encounter Details Date Type Department Care Team (Late st Contact Info) Description 12/11/2021 Lab Requisition [facility] Laboratory Services 1 [place] [phone] Gagan Mcginnis MD [address] [place] [address] [address] Encounter for screening for COVID-19 Social History [...] Associated Diagnosis Comments SARS-COV-2 BY MOLECULAR Routine 12/11/2021 7:14 AM CDT Encounter for screening for COVID-19 documented in this encounter Results * SARS-COV-2 BY MOLECULAR (12/11/2021 7:14 AM CDT) SARSCOV2 NOT DETECTED (Referen ce Range for this test is Not Detected ) [facility] THERMOFISHER FAST DX 12/12/2021 10:13 AM CDT [facility] Comment:This test was perfor med by a RT-PCR method. Other Non-Phlebotomy Collection / Unknown 12/11/2021 7:14 AM CDT 12/11/2021 1:11 PM CDT Narrative [facility] - 12/12/2021 10:13 AM CDT Authorized Fact Sheets about this test for providers and patients are available at: https://www.fda.gov/medical-devices/vwlikrcnb-jngitnsurx-ikhgqze-devices/emergen -us e-authorizations us Gagan Mcginnis MD MICROBIOLOGY - GENERAL ORDERAB LES Final Result [facility] [address] [place] [address], documented in this encounter Visit Diagnoses Diagnosis Encounter for screening for COVID-19 documented in this encounter Additional Health Concerns Infection Onset Date Last Indicated Resolved Time COVID - 19 11/13/2021 06/11/2022 06/21/2022 12:1 6 AM NONPROFIT DIRECTOR COVID - 19 07/30/2022 10/15/2022 10/25/2022 12:1 6 AM CDT Respiratory Rule-Out 09/06/2024 09/06/2024 025 12:16 AM NONPROFIT DIRECTOR documented as of this encounter Care Teams Sandwich Peddler Relationship Specialty Start Date End Date Gagan Mcginnis MD [address] [place] [address] [address] [place] [address] PCP - General Family Medicine 06/12/21 Gagan Mcginnis MD [address] [facility] [address] [place] [address] Family Medicine 06/12/21 documented as of this encounter
--- OUTSIDE RECORDS SUMMARY | 2024-09-28 09:47 | XMS_ITS | Encounter Summary ---
Author Organization [facility] Address [address] [place] [address] Phone Care Team Providers Care Clinical Laboratory Medical Director Name Role Phone Gagan Mcginnis MD Primary Care Provider [phone] Gagan Mcginnis MD Unavailable [phone] Encounter Details Date Type Department Care Team (Late st Contact Info) Description 10/01/2022 Lab Requisition [facility] Laboratory Services 1 [place] [phone] Gagan Mcginnis MD [address] [place] [address] [address] Encounter for screening for COVID-19 Social History [...] Associated Diagnosis Comments SARS-COV-2 BY MOLECULAR Routine 10/01/2022 7:43 AM PRINTER OPERATOR Encounter for screening for COVID-19 documented in this encounter Results * SARS-COV-2 BY MOLECULAR (10/01/2022 7:43 AM PRINTER OPERATOR) SARSCOV2 NOT DETECTED (Referen ce Range for this test is Not Detected ) [facility] THERMOFISHER FAST DX 10/02/2022 8:02 AM PRINTER OPERATOR [facility] Comment:This test was perfor med by a RT-PCR method. Other Non-Phlebotomy Collection / Unknown 10/01/2022 7:43 AM PRINTER OPERATOR 10/01/2022 10:42 AM PRINTER OPERATOR Narrative [facility] - 10/02/2022 8:02 AM PRINTER OPERATOR Authorized Fact Sheets about this test for providers and patients are available at: https://www.fda.gov/medical-devices/zmcfqsglc-qlzcndiiyh-ozvggaa-devices/emergen -us e-authorizations us Gagan Mcginnis MD MICROBIOLOGY - GENERAL ORDERAB LES Final Result [facility] [address] [place] [address], documented in this encounter Visit Diagnoses Diagnosis Encounter for screening for COVID-19 documented in this encounter Additional Health Concerns Infection Onset Date Last Indicated Resolved Time COVID - 19 07/30/2022 10/15/2022 10/25/2022 12:1 6 AM CDT Respiratory Rule-Out 09/06/2024 09/06/2024 025 12:16 AM PRINTER OPERATOR documented as of this encounter Care Teams Clinical Laboratory Medical Director Relationship Specialty Start Date End Date Gagan Mcginnis MD [address] [place] [address] [place] [address] PCP - General Family Medicine 06/12/21 Gagan Mcginnis MD [address] [place] [address] [place] [address] Family Medicine 06/12/21 documented as of this encounter
--- OUTSIDE RECORDS SUMMARY | 2024-09-28 09:47 | XMS_ITS | Encounter Summary ---
Author Organization [facility] Address [address] [place] [address] Phone Care Team Providers Care Clinical Manager Name Role Phone Gagan Mcginnis MD Primary Care Provider [phone] Gagan Mcginnis MD Unavailable [phone] Encounter Details Date Type Department Care Team (Late st Contact Info) Description 12/25/2021 Lab Requisition [facility] Laboratory Services 1 [place] [phone] Gagan Mcginnis MD [address] [place] [address] [address] Encounter for screening for COVID-19 Social History [...] Associated Diagnosis Comments SARS-COV-2 BY MOLECULAR Routine 12/25/2021 6:59 AM CDT Encounter for screening for COVID-19 documented in this encounter Results * SARS-COV-2 BY MOLECULAR (12/25/2021 6:59 AM CDT) SARSCOV2 NOT DETECTED (Referen ce Range for this test is Not Detected ) [facility] THERMOFISHER FAST DX 12/26/2021 2:01 PM CDT [facility] Comment:This test was perfor med by a RT-PCR method. Other Non-Phlebotomy Collection / Unknown 12/25/2021 6:59 AM CDT 12/25/2021 10:02 AM CDT Narrative [facility] - 12/26/2021 2:01 PM CDT Authorized Fact Sheets about this test for providers and patients are available at: https://www.fda.gov/medical-devices/bcrqomowl-xtnigxgqvk-vpyhqff-devices/emergen -us e-authorizations us Gagan Mcginnis MD MICROBIOLOGY - GENERAL ORDERAB LES Final Result [facility] [address] [place] [address], documented in this encounter Visit Diagnoses Diagnosis Encounter for screening for COVID-19 documented in this encounter Additional Health Concerns Infection Onset Date Last Indicated Resolved Time COVID - 19 11/13/2021 06/11/2022 06/21/2022 12:1 6 AM STATION DETECTIVE COVID - 19 07/30/2022 10/15/2022 10/25/2022 12:1 6 AM CDT Respiratory Rule-Out 09/06/2024 09/06/2024 025 12:16 AM STATION DETECTIVE documented as of this encounter Care Teams Clinical Manager Relationship Specialty Start Date End Date Gagan Mcginnis MD [address] [place] [address] [address] [place] [address] PCP - General Family Medicine 06/12/21 Gagan Mcginnis MD [address] [facility] [address] [place] [address] Family Medicine 06/12/21 documented as of this encounter
--- OUTSIDE RECORDS SUMMARY | 2024-09-28 09:47 | XMS_ITS | Encounter Summary ---
Author Organization [facility] Address [address] [place] [address] Phone Care Team Providers Care Code Enforcement Inspector Name Role Phone Gagan Mcginnis MD Primary Care Provider [phone] Gagan Mcginnis MD Unavailable [phone] Encounter Details Date Type Department Care Team (Late st Contact Info) Description 09/03/2022 Lab Requisition [facility] Laboratory Services 1 [place] [phone] Gagan Mcginnis MD [address] [place] [address] [address] Encounter for screening for COVID-19 Social History [...] Associated Diagnosis Comments SARS-COV-2 BY MOLECULAR Routine 09/03/2022 7:25 AM MANAGER TRANSFUSION Encounter for screening for COVID-19 documented in this encounter Results * SARS-COV-2 BY MOLECULAR (09/03/2022 7:25 AM MANAGER TRANSFUSION) SARSCOV2 NOT DETECTED (Referen ce Range for this test is Not Detected ) [facility] THERMOFISHER FAST DX 09/03/2022 10:10 PM MANAGER TRANSFUSION [facility] Comment:This test was perfor med by a RT-PCR method. Other Non-Phlebotomy Collection / Unknown 09/03/2022 7:25 AM MANAGER TRANSFUSION 09/03/2022 10:31 AM MANAGER TRANSFUSION Narrative [facility] - 09/03/2022 10:10 PM MANAGER TRANSFUSION Authorized Fact Sheets about this test for providers and patients are available at: https://www.fda.gov/medical-devices/ngrwxnvww-vsjfcwldir-bueiadb-devices/emergen -us e-authorizations us Gagan Mcginnis MD MICROBIOLOGY - GENERAL ORDERAB LES Final Result [facility] [address] [place] [address], documented in this encounter Visit Diagnoses Diagnosis Encounter for screening for COVID-19 documented in this encounter Additional Health Concerns Infection Onset Date Last Indicated Resolved Time COVID - 19 07/30/2022 10/15/2022 10/25/2022 12:1 6 AM CDT Respiratory Rule-Out 09/06/2024 09/06/2024 025 12:16 AM MANAGER TRANSFUSION documented as of this encounter Care Teams Code Enforcement Inspector Relationship Specialty Start Date End Date Gagan Mcginnis MD [address] [place] [address] [place] [address] PCP - General Family Medicine 06/12/21 Gagan Mcginnis MD [address] [place] [address] [place] [address] Family Medicine 06/12/21 documented as of this encounter
--- OUTSIDE RECORDS SUMMARY | 2024-09-28 09:47 | XMS_ITS | Encounter Summary ---
Author Organization [facility] Address [address] [place] [address] Phone Care Team Providers Care Veterinary Dentist Name Role Phone Gagan Mcginnis MD Primary Care Provider [phone] Gagan Mcginnis MD Primary Care Provider [phone] Gagan Mcginnis MD Unavailable [phone] Encounter Details Date Type Department Care Team (Late st Contact Info) Description 05/15/2021 Lab Requisition [facility] Laboratory Services 1 [place] [address] Gagan Mcginnis MD [address] [place] [address] [address] [place] [address] Social History Tobacco Use Types Packs/Day Years [...] Associated Diagnosis Comments SARS-COV-2 BY MOLECULAR Routine 05/15/2021 7:34 AM CDT documented in this encounter Results * SARS-COV-2 BY MOLECULAR (05/15/2021 7:34 AM CDT) SARSCOV2 NOT DETECTED (Referen ce Range for this test is Not Detected ) [facility] THERMOFISHER FAST DX 05/16/2021 10:46 AM CDT [facility] Comment:This test was perfor med by a RT-PCR method. Other Non-Phlebotomy Collection / Unknown 05/15/2021 7:34 AM CDT 05/15/2021 10:52 AM CDT Narrative [facility] - 05/16/2021 10:46 AM CDT Authorized Fact Sheets about this test for providers and patients are available at: https://www.fda.gov/medical-devices/ludmryryu-rbjjlhpwhc-tttmgxq-devices/emergen -us e-authorizations us Gagan Mcginnis MD MICROBIOLOGY - GENERAL ORDERAB LES Final Result [facility] [address] [place] [address], documented in this encounter Visit Diagnoses Not on filedocumented in this encounter Additional Health Concerns Infection Onset Date Last Indicated Resolved Time COVID - 19 04/24/2021 08/14/2021 08/16/2021 6:12 AM RADIOCHEMICAL TECHNICIAN COVID - 19 06/12/2021 07/10/2021 07/16/2021 12:1 8 AM RADIOCHEMICAL TECHNICIAN COVID - 19 07/17/2021 07/31/2021 08/06/2021 12:1 6 AM RADIOCHEMICAL TECHNICIAN COVID - 19 Confirmed 08/14/2021 08/14/2021 022 12:17 AM RADIOCHEMICAL TECHNICIAN COVID - 19 09/11/2021 09/11/2021 10/01/2021 12:1 6 AM RADIOCHEMICAL TECHNICIAN COVID - 19 11/13/2021 06/11/2022 06/21/2022 12:1 6 AM RADIOCHEMICAL TECHNICIAN COVID - 19 07/30/2022 10/15/2022 10/25/2022 12:1 6 AM CDT Respiratory Rule-Out 09/06/2024 09/06/2024 025 12:16 AM RADIOCHEMICAL TECHNICIAN documented as of this encounter Care Teams Veterinary Dentist Relationship Specialty Start Date End Date Gagan Mcginnis MD [address] [place] [address] [address] [place] [address] PCP - General Family Medicine 08/21/20 06/11/21 Gagan Mcginnis MD 4 [facility] [place] [address] PCP - General [facility] Medicine 06/12/21 Gagan Mcginnis MD 4 [facility] [place] [place] [address] Family Medicine 06/12/21 documented as of this encounter
--- OUTSIDE RECORDS SUMMARY | 2024-09-28 09:47 | XMS_ITS | Encounter Summary ---
Author Organization [facility] Address [address] [place] [address] Phone Care Team Providers Care Carving Machine Operator Name Role Phone Gagan Mcginnis MD Primary Care Provider [phone] Gagan Mcginnis MD Unavailable [phone] Encounter Details Date Type Department Care Team (Late st Contact Info) Description 02/12/2022 Lab Requisition [facility] Laboratory Services 1 [place] [phone] Gagan Mcginnis MD [address] [place] [address] [address] Encounter for screening for COVID-19 Social History [...] Associated Diagnosis Comments SARS-COV-2 BY MOLECULAR Routine 02/12/2022 6:54 AM CDT Encounter for screening for COVID-19 documented in this encounter Results * SARS-COV-2 BY MOLECULAR (02/12/2022 6:54 AM CDT) SARSCOV2 NOT DETECTED (Referen ce Range for this test is Not Detected ) [facility] THERMOFISHER FAST DX 02/13/2022 10:49 AM CDT [facility] Comment:This test was perfor med by a RT-PCR method. Other Non-Phlebotomy Collection / Unknown 02/12/2022 6:54 AM CDT 02/12/2022 11:26 AM CDT Narrative [facility] - 02/13/2022 10:49 AM CDT Authorized Fact Sheets about this test for providers and patients are available at: https://www.fda.gov/medical-devices/ljsepdwth-weuifuanjv-prgzwcm-devices/emergen -us e-authorizations us Gagan Mcginnis MD MICROBIOLOGY - GENERAL ORDERAB LES Final Result [facility] [address] [place] [address], documented in this encounter Visit Diagnoses Diagnosis Encounter for screening for COVID-19 documented in this encounter Additional Health Concerns Infection Onset Date Last Indicated Resolved Time COVID - 19 11/13/2021 06/11/2022 06/21/2022 12:1 6 AM BENCH HAND MACHINE COVID - 19 07/30/2022 10/15/2022 10/25/2022 12:1 6 AM CDT Respiratory Rule-Out 09/06/2024 09/06/2024 025 12:16 AM BENCH HAND MACHINE documented as of this encounter Care Teams Carving Machine Operator Relationship Specialty Start Date End Date Gagan Mcginnis MD [address] [place] [address] [address] [place] [address] PCP - General Family Medicine 06/12/21 Gagan Mcginnis MD 4 [facility] [address] [place] [address] Family Medicine 06/12/21 documented as of this encounter
--- OUTSIDE RECORDS SUMMARY | 2024-09-28 09:47 | XMS_ITS | Encounter Summary ---
Author Organization [facility] Address [address] [place] [address] Phone Care Team Providers Care Drafter Electronic Name Role Phone Gagan Mcginnis MD Primary Care Provider [phone] Gagan Mcginnis MD Unavailable [phone] Encounter Details Date Type Department Care Team (Late st Contact Info) Description 08/28/2022 Lab Requisition [facility] Laboratory Services [address] [place] [id number] Gagan Mcginnis MD [address] [place] [address] [address] Encounter for screening for COVID-19 Social History [...] Associated Diagnosis Comments SARS-COV-2 BY MOLECULAR Routine 08/28/2022 7:53 AM SURGERY NURSE Encounter for screening for COVID-19 documented in this encounter Results * SARS-COV-2 BY MOLECULAR (08/28/2022 7:53 AM SURGERY NURSE) SARSCOV2 NOT DETECTED (Referen ce Range for this test is Not Detected ) [facility] THERMOFISHER FAST DX 08/28/2022 5:12 PM SURGERY NURSE [facility] Comment:This test was perfor med by a RT-PCR method. Other Non-Phlebotomy Collection / Unknown 08/28/2022 7:53 AM SURGERY NURSE 08/28/2022 10:02 AM SURGERY NURSE Narrative [facility] - 08/28/2022 5:12 PM SURGERY NURSE Authorized Fact Sheets about this test for providers and patients are available at: https://www.fda.gov/medical-devices/fhpbsblmq-pmzrtlcyhu-zbsyeen-devices/emergen -us e-authorizations us Gagan Mcginnis MD MICROBIOLOGY - GENERAL ORDERAB LES Final Result [facility] [address] [place] [address], documented in this encounter Visit Diagnoses Diagnosis Encounter for screening for COVID-19 documented in this encounter Additional Health Concerns Infection Onset Date Last Indicated Resolved Time COVID - 19 07/30/2022 10/15/2022 10/25/2022 12:1 6 AM CDT Respiratory Rule-Out 09/06/2024 09/06/2024 025 12:16 AM SURGERY NURSE documented as of this encounter Care Teams Drafter Electronic Relationship Specialty Start Date End Date Gagan Mcginnis MD [address] [place] [address] [place] [address] PCP - General Family Medicine 06/12/21 Gagan Mcginnis MD [address] [place] [address] [place] [address] Family Medicine 06/12/21 documented as of this encounter
--- OUTSIDE RECORDS SUMMARY | 2024-09-28 09:47 | XMS_ITS | Encounter Summary ---
Author Organization [facility] Address [address] [place] [address] Phone Care Team Providers Care Aquarium Tank Attendant Name Role Phone Gagan Mcginnis MD Primary Care Provider [phone] Gagan Mcginnis MD Unavailable [phone] Encounter Details Date Type Department Care Team (Late st Contact Info) Description 11/20/2021 Lab Requisition [facility] Laboratory Services [address] [place] [id number] Gagan Mcginnis MD [address] [place] [address] [address] Encounter for screening for COVID-19 Social History [...] Associated Diagnosis Comments SARS-COV-2 BY MOLECULAR Routine 11/20/2021 7:39 AM CDT Encounter for screening for COVID-19 documented in this encounter Results * SARS-COV-2 BY MOLECULAR (11/20/2021 7:39 AM CDT) SARSCOV2 NOT DETECTED (Referen ce Range for this test is Not Detected ) [facility] THERMOFISHER FAST DX 11/21/2021 12:20 AM CDT [facility] Comment:This test was perfor med by a RT-PCR method. Other Non-Phlebotomy Collection / Unknown 11/20/2021 7:39 AM CDT 11/20/2021 12:59 PM CDT Narrative [facility] - 11/21/2021 12:20 AM CDT Authorized Fact Sheets about this test for providers and patients are available at: https://www.fda.gov/medical-devices/jcuoqrtvp-drabpauvnv-ympodld-devices/emergen -us e-authorizations us Gagan Mcginnis MD MICROBIOLOGY - GENERAL ORDERAB LES Final Result [facility] [address] [place] [address], documented in this encounter Visit Diagnoses Diagnosis Encounter for screening for COVID-19 documented in this encounter Additional Health Concerns Infection Onset Date Last Indicated Resolved Time COVID - 19 11/13/2021 06/11/2022 06/21/2022 12:1 6 AM RAILROAD CAR LETTERER COVID - 19 07/30/2022 10/15/2022 10/25/2022 12:1 6 AM CDT Respiratory Rule-Out 09/06/2024 09/06/2024 025 12:16 AM RAILROAD CAR LETTERER documented as of this encounter Care Teams Aquarium Tank Attendant Relationship Specialty Start Date End Date Gagan Mcginnis MD [address] [place] [address] [address] [place] [address] PCP - General Family Medicine 06/12/21 Gagan Mcginnis MD [address] [place] [address] [address] [place] [address] Family Medicine 06/12/21 documented as of this encounter
== END 2024-09-28 09:05 | disposition home or self-care (01) ==
LOC: ANHBWCAUD 09:04
PROVIDERS: Visit Provider Family Medicine
DX: H61.22 Impacted cerumen, left ear (principal)
CPT/HCPCS: 92557; 92567